=== PATIENT | female | born 1970 | race Caucasian/White ===

== ENCOUNTER 2016-10-26 18:11 | Emergency (ER) | payer SELFPAY ==
[2016-10-26] MEDS ORDERED: SULFAMETHOXAZOLE/TRIMETHOPRIM 800-160 MG TABLET PO ONE ×2 (19:50→19:54)
[2016-10-26] MEDS ORDERED: HYDROCODONE/ACETAMINOPHEN 5-325 MG 6 TAB/DSPK PO PRN (19:58)
--- NOTE | 2016-10-26 20:00 | ER Document Report ---
HPI - HPI Patient complains to provider of: Despite Onset: This morning Onset/Duration: Persistent, Worse Quality of pain: Achy Pain Level: 2 Context: States that she was bit by a spider to her right second finger. Patient states she noticed a lesion this morning. Patient reports that gradually through the day that her finger has become more tender, swollen and red. Patient denies any fever. Patient states that she did receive a dose of Rocephin and was placed on Ceftin yesterday to treat strep pharyngitis. Patient states she has had 3 doses of her antibiotics so far. Pt Reports that her sore throat symptoms seem to be improved today. Associated Symptoms: denies: Fever Exacerbated by: Movement Relieved by: Denies Similar symptoms previously: No Recently seen / treated by doctor: Yes - ROS ROS below otherwise negative: Yes Systems Reviewed and Negative: Yes All other systems reviewed and negative - CONSTITUTIONAL Constitutional: REPORTS: Fever - EENT EENT: DENIES: Sore Throat - NEURO Neurology: DENIES: Headache - CARDIOVASCULAR Cardiovascular: DENIES: Chest pain - GASTROINTESTINAL Gastrointestinal: DENIES: Nausea - REPRODUCTIVE Reproductive: DENIES: : - MUSCULOSKELETAL Musculoskeletal: REPORTS: Extremity pain, Swelling - DERM Skin Color: Erythema Notes: insect bite Past Medical History - General Information source: Patient - Social History Smoking Status: Former Smoker Chew tobacco use (# tins/day): No Frequency of alcohol use: None Drug Abuse: None Occupation: medical office Lives with: Family Family History: Reviewed & Not Pertinent Patient has suicidal ideation: No Patient has homicidal ideation: No - Past Medical History Cardiac Medical History: Reports: Hx Hypertension Neurological Medical History: Reports: Hx Migraine Renal/ Medical History: Denies: Hx Peritoneal Dialysis Past Surgical History: Reports: Hx Section - x 3, Hx Gynecologic Surgery - d+c, Hx Hysterectomy, Hx Tubal Ligation - Immunizations Hx Diphtheria, Pertussis, Tetanus Vaccination: Yes Vertical Provider Document - CONSTITUTIONAL Agree With Documented VS: Yes Exam Limitations: No Limitations General Appearance: WD/WN, No Apparent Distress - INFECTION CONTROL TRAVEL OUTSIDE OF THE [place] IN LAST 30 DAYS: No - HEENT HEENT: Atraumatic, Normal ENT Exam, Normocephalic. negative: Pharyngeal Exudate , Pharyngeal Tenderness, Pharyngeal Erythema - NECK Neck: Normal Inspection, Supple. negative: Lymphadenopathy-Left, Lymphadenopathy-Right - RESPIRATORY Respiratory: Breath Sounds Normal, No Respiratory Distress O2 Sat by Pulse Oximetry: 99 - CARDIOVASCULAR Cardiovascular: Regular Rate, Regular Rhythm, No Murmur Pulses: Normal: Radial - MUSCULOSKELETAL/EXTREMETIES Musculoskeletal/Extremeties: MAEW, Tender - right 2nd finger tenderness, Edema - 1+ - NEURO Level of Consciousness: Awake, Alert, Appropriate Motor/Sensory: No Motor Deficit, No Sensory Deficit - DERM Integumentary: Warm, Dry. negative: Abscess Notes: Patient with erythematous, violaceous skin lesion to dorsal aspect of right second finger over proximal phalanx, lesion with faint erythema extending proximally up and about 2 cm. No concern for tenosynovitis. No concern for drainable abscess at this time. Course - Re-evaluation Re-evalutation: 10/26/16 19:[address] Ordaz regarding patient presentation. Agrees with plan to add Bactrim for MRSA coverage - Vital Signs Vital signs: Temp Pulse Resp BP Pulse Ox 97.8 F 95 16 133/85 H 99 10/26/16 18:23 10/26/16 18:23 10/26/16 18:23 10/26/16 18:23 10/26/16 18:23 Discharge - Discharge Clinical Impression: Insect bite Qualifiers: Encounter type: initial encounter Qualified Code(s): W57.XXXA - Bitten or stung by nonvenomous insect and other nonvenomous arthropods, initial encounter Cellulitis, finger Qualifiers: Laterality: right Qualified Code(s): L03.011 - Cellulitis of right finger Condition: Stable Disposition: HOME, SELF-CARE Instructions: Insect Bites ([facility]), Cellulitis ([facility]), Trimethoprim-Sulfa ([facility]) Additional Instructions: Continue to take your Ceftin as previously prescribed Return as needed for any new or worsening symptoms follow up with your primary care provider for a recheck, call tomorrow for an appointment Prescriptions: Sulfamethoxazole/Trimethoprim [Bactrim Ds Tablet] 1 each PO BID #20 tablet Referrals: VINICIO CERRATO FNP-C [Primary Care Provider] - Follow up as needed VANDA SANFORD PA-C [COMMUNITY BASED STAFF] - Follow up tomorrow
[2016-10-26 20:29] VITALS: BP 128/86
== END 2016-10-26 20:27 | disposition home or self-care (01) ==
LOC: ER 18:11
DX: S60.460A Insect bite (nonvenomous) of right index finger, initial encounter (principal); L03.011 Cellulitis of right finger; W57.XXXA Bitten or stung by nonvenomous insect and other nonvenomous arthropods, initial encounter; J02.0 Streptococcal pharyngitis; Z87.891 Personal history of nicotine dependence; I10 Essential (primary) hypertension
CPT/HCPCS: 99281

== ENCOUNTER 2017-10-08 14:50 | Observation (INO) | payer BC ==
[2017-10-08] MEDS ORDERED: ASPIRIN 81 MG TABLET, CHEWABLE PO ONE (15:07)
--- NOTE | 2017-10-08 15:07 | ER Document Report ---
ED Medical Screen (RME) - General Chief Complaint: Chest Pain Stated Complaint: CHEST TIGHTNESS, HEADACHE Time Seen by Provider: 10/08/17 15:07 Mode of Arrival: Ambulatory Information source: Patient Notes: 47-year-old female with hypertension who presents to the emergency room with intermittent retrosternal squeezing since 830 this morning. No obvious exertional component. Denies any contributing or relieving factors. TRAVEL OUTSIDE OF THE [place] IN LAST 30 DAYS: No - Related Data Allergies/Adverse Reactions: No Known Allergies Allergy (Verified 10/08/17 14:52) Past Medical History - Social History Chew tobacco use (# tins/day): No Frequency of alcohol use: None Drug Abuse: Marijuana - Past Medical History Cardiac Medical History: Reports: Hx Hypertension Neurological Medical History: Reports: Hx Migraine Renal/ Medical History: Denies: Hx Peritoneal Dialysis Past Surgical History: Reports: Hx Section - x 3, Hx Gynecologic Surgery - d+c, Hx Hysterectomy, Hx Tubal Ligation - Immunizations Hx Diphtheria, Pertussis, Tetanus Vaccination: Yes Physical Exam - Vital signs Vitals: Temp Pulse Resp BP Pulse Ox 97.4 F 82 20 147/82 H 99 10/08/17 14:59 10/08/17 14:59 10/08/17 14:59 10/08/17 14:59 10/08/17 14:59 Course - Vital Signs Vital signs: Temp Pulse Resp BP Pulse Ox 97.4 F 82 20 147/82 H 99 10/08/17 14:59 10/08/17 14:59 10/08/17 14:59 10/08/17 14:59 10/08/17 14:59
--- NOTE | 2017-10-08 15:42 | RADIOLOGY REPORT (SQ) ---
EXAM DESCRIPTION: CHEST SINGLE VIEW COMPLETED DATE/TIME: 10/08/2017 3:30 pm REASON FOR STUDY: chest pain COMPARISON: 03/30/2015. EXAM PARAMETERS: NUMBER OF VIEWS: One view. TECHNIQUE: Single frontal radiographic view of the chest acquired. RADIATION DOSE: NA LIMITATIONS: None. FINDINGS: LUNGS AND PLEURA: No opacities, masses or pneumothorax. No pleural effusion. MEDIASTINUM AND HILAR STRUCTURES: No masses. Contour normal. HEART AND VASCULAR STRUCTURES: Heart normal in size. Normal vasculature. BONES: No acute findings. HARDWARE: None in the chest. OTHER: No other significant finding. IMPRESSION: NO ACUTE RADIOGRAPHIC FINDING IN THE CHEST. TECHNICAL DOCUMENTATION: JOB ID: [id number] [employer]- All Rights Reserved Reading location - IP/workstation name: [email or web address]
[2017-10-08 15:51] LABS: ABSOLUTE BASOPHILS # (AUTO) 0.1 10^3/uL (0.0-0.2); ABSOLUTE EOSINOPHILS # (AUTO) 0.7 10^3/uL (0.0-0.6); ABSOLUTE MONOCYTES (AUTO) 0.5 10^3/uL (0.1-1.4); ABSOLUTE NEUT (AUTO) 4.3 10^3/uL (1.7-8.2); BASOPHILS % (AUTO) 0.7 % (0-2); EOSINOPHILS % (AUTO) 8.8 % (0-6); HEMATOCRIT 42.8 % (36.0-47.0); HEMOGLOBIN 14.6 g/dL (12.0-15.5); MEAN CORPUSCULAR HEMOGLOBIN 29.5 pg (27.0-33.4); MEAN CORPUSCULAR HGB CONC 34.2 g/dL (32.0-36.0); MEAN CORPUSCULAR VOLUME 86 fl (80-97); MONOCYTES % (AUTO) 7.2 % (3-13); PLATELET COUNT 304 10^3/uL (150-450); RED BLOOD COUNT 4.96 10^6/uL (3.72-5.28); RED CELL DISTRIBUTION WIDTH 13.8 % (11.5-14.0); SEGMENTED NEUTROPHILS % (AUTO) 57.3 % (42-78); TOTAL CELLS COUNTED % (AUTO) 100 %; WHITE BLOOD COUNT 7.6 10^3/uL (4.0-10.5)
[2017-10-08 16:08] LABS: ALANINE AMINOTRANSFERASE 23 U/L (9-52); ALBUMIN 4.3 g/dL (3.5-5.0); ALKALINE PHOSPHATASE 77 U/L (38-126); ANION GAP 12 (5-19); ASPARTATE AMINO TRANSFERASE 23 U/L (14-36); BILIRUBIN,DIRECT 0.3 mg/dL (0.0-0.4); BILIRUBIN,TOTAL 0.3 mg/dL (0.2-1.3); BLOOD UREA NITROGEN 23 mg/dL (7-20); CALCIUM 10.5 mg/dL (8.4-10.2); CARBON DIOXIDE 33 mmol/L (22-30); CHLORIDE 99 mmol/L (98-107); CREATINE KINASE 48 U/L (30-135); GLUCOSE 82 mg/dL (75-110); POTASSIUM 4.5 mmol/L (3.6-5.0); SODIUM 143.5 mmol/L (137-145); TOTAL PROTEIN 8.1 g/dL (6.3-8.2)
--- NOTE | 2017-10-08 16:08 | ER Document Report ---
ED General - General Chief Complaint: Chest Pain Stated Complaint: CHEST TIGHTNESS, HEADACHE Time Seen by Provider: 10/08/17 15:07 Mode of Arrival: Ambulatory Information source: Patient Notes: 47-year-old female history of hypertension family history of coronary artery disease presents with complaints of chest tightness sensation. Patient notes that he feels that there is a squeezing sensation in her chest lasting 15 minutes at a time. Patient denies any previous similar episodes has never had a stress test TRAVEL OUTSIDE OF THE [place] IN LAST 30 DAYS: No - HPI Onset: This morning Onset/Duration: Sudden Quality of pain: Pressure Severity: Mild Pain Level: 1 Associated symptoms: Chest pain Exacerbated by: Denies Relieved by: Denies Similar symptoms previously: No Recently seen / treated by doctor: No - Related Data Allergies/Adverse Reactions: No Known Allergies Allergy (Verified 10/08/17 15:07) Past Medical History - General Information source: Patient - Social History Smoking Status: Never Smoker Cigarette use (# per day): No Chew tobacco use (# tins/day): No Smoking Education Provided: No Frequency of alcohol use: None Drug Abuse: Marijuana Family History: Reviewed & Not Pertinent Patient has suicidal ideation: No Patient has homicidal ideation: No - Past Medical History Cardiac Medical History: Reports: Hx Hypertension Neurological Medical History: Reports: Hx Migraine Renal/ Medical History: Denies: Hx Peritoneal Dialysis Past Surgical History: Reports: Hx Section - x 3, Hx Gynecologic Surgery - d+c, Hx Hysterectomy, Hx Tubal Ligation - Immunizations Hx Diphtheria, Pertussis, Tetanus Vaccination: Yes Review of Systems - Review of Systems Notes: REVIEW OF SYSTEMS: CONSTITUTIONAL : Denies fever, chills, or sweats. Denies recent illness. EENT: Denies eye, ear, throat, or mouth pain or symptoms. Denies nasal or sinus congestion or discharge. Denies throat, tongue, or mouth swelling or difficulty swallowing. CARDIOVASCULAR: Denies chest pain. Denies palpitations or racing or irregular heart beat. Denies ankle edema. RESPIRATORY: Admits to chest pain. GASTROINTESTINAL: Denies abdominal pain or distention. Denies nausea, vomiting , or diarrhea. Denies blood in vomitus, stools, or per rectum. Denies black, tarry stools. Denies constipation. GENITOURINARY: Denies difficulty urinating, painful urination, burning, frequency, blood in urine, or discharge. FEMALE GENITOURINARY: Denies vaginal bleeding, heavy or abnormal periods, irregular periods. Denies vaginal discharge or odor. MUSCULOSKELETAL: Denies back or neck pain or stiffness. Denies joint pain or swelling. SKIN: Denies rash, lesions or sores. HEMATOLOGIC : Denies easy bruising or bleeding. LYMPHATIC: Denies swollen, enlarged glands. NEUROLOGICAL: Denies confusion or altered mental status. Denies passing out or loss of consciousness. Denies dizziness or lightheadedness. Denies headache. Denies weakness or paralysis or loss of use of either side. Denies problems with gait or speech. Denies sensory loss, numbness, or tingling. Denies seizures. PSYCHIATRIC: Denies anxiety or stress. Denies depression, suicidal ideation, or homicidal ideation. ALL OTHER SYSTEMS REVIEWED AND NEGATIVE. PHYSICAL EXAMINATION: GENERAL: Well-appearing, well-nourished and in no acute distress. HEAD: Atraumatic, normocephalic. EYES: Pupils equal round and reactive to light, extraocular movements intact, conjunctiva are normal. ENT: Nares patent, oropharynx clear without exudates. Moist mucous membranes. NECK: Normal range of motion, supple without lymphadenopathy LUNGS: Breath sounds clear to auscultation bilaterally and equal. No wheezes rales or rhonchi. HEART: Regular rate and rhythm without murmurs ABDOMEN: Soft, nontender, nondistended abdomen. No guarding, no rebound. No masses appreciated. Female : deferred Musculoskeletal: Normal range of motion, no pitting or edema. No cyanosis. NEUROLOGICAL: Cranial nerves grossly intact. Normal speech, normal gait. Normal sensory, motor exams PSYCH: Normal mood, normal affect. SKIN: Warm, Dry, normal turgor, no rashes or lesions noted. Dictation was performed using [employer] voice recognition software Physical Exam - Vital signs Vitals: Temp Pulse Resp BP Pulse Ox 97.4 F 82 20 147/82 H 99 10/08/17 14:59 10/08/17 14:59 10/08/17 14:59 10/08/17 14:59 10/08/17 14:59 Course - Re-evaluation Re-evalutation: 10/08/17 18:15 Patient's presentation is concerning for acute coronary syndrome, I will observe the patient in the hospital, EKG noted no significant abnormality, patient's pain-free at this time for set of cardiac enzymes was negative - Vital Signs Vital signs: Temp Pulse Resp BP Pulse Ox 98.0 F 82 12 128/93 H 97 10/08/17 18:00 10/08/17 14:59 10/08/17 18:01 10/08/17 18:00 10/08/17 18:01 - Laboratory Result Diagrams: 10/08/17 15:20 10/08/17 15:20 Laboratory results interpreted by me: 10/08/17 10/08/17 15:20 15:20 Eosinophils % 8.8 H Absolute Eosinophils 0.7 H Carbon Dioxide 33 H BUN 23 H Calcium 10.5 H - Diagnostic Test Radiology reviewed: Image reviewed - 2 view chest x-ray notes no acute abnormality, Reports reviewed - EKG Interpretation by Me EKG shows normal: Sinus rhythm, Gordon, Intervals, QRS Complexes Discharge - Discharge Clinical Impression: Chest pain Qualifiers: Chest pain type: unspecified Qualified Code(s): R07.9 - Chest pain, unspecified HTN (hypertension) Qualifiers: Hypertension type: essential hypertension Qualified Code(s): I10 - Essential ( primary) hypertension Condition: Stable Disposition: ADMITTED OBSERVATION Admitting Provider: Hospitalist Unit Admitted: Telemetry
--- NOTE | 2017-10-08 16:19 | EKG REPORT ---
SEVERITY:- BORDERLINE ECG - SINUS RHYTHM PROBABLE LEFT ATRIAL ABNORMALITY : Confirmed by: Myke Alvarez 08-Oct-2017 16:18:17
[2017-10-08 16:20] LABS: CREATINE KINASE MB 0.59 ng/mL (<4.55); TROPONIN I < 0.012 ng/mL
[2017-10-08] MEDS ORDERED: ONDANSETRON HCL INJ/PF 4 MG/2 ML SDV IV PRN (17:40)
[2017-10-08] MEDS ORDERED: ZOLPIDEM TARTRATE 5 MG TABLET PO PRN (17:40)
[2017-10-08] MEDS ORDERED: MAGNESIUM HYDROXIDE SUSP 30 ML UDCUP PO PRN (17:40)
[2017-10-08] MEDS ORDERED: ACETAMINOPHEN 325 MG TABLET PO PRN (17:40)
[2017-10-08] MEDS ORDERED: OXYCODONE-ACETAMINOPHEN 5-325 MG TABLET PO PRN (17:40)
[2017-10-08] MEDS ORDERED: IPRATROPIUM/ALBUTEROL 0.5-2.5 MG/3 ML AMPUL NEB PRN (17:40)
--- NOTE | 2017-10-08 17:52 | PDOC H&P ---
History of Present Illness Admission Date/PCP: 10/08/17 17:06 MONET MCKEON MD Patient complains of: Chest pain, nonradiating for few hours History of Present Illness: MAHESH BRASHER is a 47 year old female presents to the emergency room with complaints of short twinges of chest pain, intermittent, and non-radiating restarted today. Chest pain is resolved. There is no associated nausea vomiting diaphoresis or any other pertinent symptoms there is no history of probable chest pain. Past Medical History Cardiac Medical History: Reports: Hypertension Neurological Medical History: Reports: Migraine Hematology: Reports: Anemia Past Surgical History Past Surgical History: Reports: Section - x 3, Hysterectomy, Tubal Ligation Social History Information Source: Patient Smoking Status: Never Smoker Frequency of Alcohol Use: None Hx Recreational Drug Use: No Hx Prescription Drug Abuse: No - Advance Directive Resuscitation Status: Full Code Family History Family History: Reviewed & Not Pertinent Parental Family History Reviewed: Yes - [place] in father Children Family History Reviewed: Yes Sibling(s) Family History Reviewed.: Yes Medication/Allergy Home Medications: Bupropion HCl [Wellbutrin 100 mg Tablet] 150 mg PO BID 10/08/17 Lisinopril/Hydrochlorothiazide [Lisinopril-Hctz 20-12.5 mg Tab] 1 each PO DAILY 10/08/17 Allergies/Adverse Reactions: No Known Allergies Allergy (Verified 10/08/17 15:07) Review of Systems Constitutional: ABSENT: chills, fever(s), headache(s), weight gain, weight loss Eyes: ABSENT: visual disturbances Cardiovascular: PRESENT: chest pain. ABSENT: dyspnea on exertion, edema, orthropnea, palpitations Respiratory: ABSENT: cough, hemoptysis Gastrointestinal: ABSENT: abdominal pain, constipation, diarrhea, hematemesis, hematochezia, nausea, vomiting Genitourinary: ABSENT: dysuria, hematuria Musculoskeletal: ABSENT: joint swelling Integumentary: ABSENT: rash, wounds Neurological: ABSENT: abnormal gait, abnormal speech, confusion, dizziness, focal weakness, syncope Psychiatric: ABSENT: anxiety, depression, homidical ideation, suicidal ideation Endocrine: ABSENT: cold intolerance, heat intolerance, polydipsia, polyuria Hematologic/Lymphatic: ABSENT: easy bleeding, easy bruising Physical Exam Vital Signs: Temp Pulse Resp BP Pulse Ox 97.4 F 82 13 126/90 H 98 10/08/17 14:59 10/08/17 14:59 10/08/17 17:05 10/08/17 17:05 10/08/17 17:05 General appearance: PRESENT: no acute distress, well-developed, well-nourished Head exam: PRESENT: atraumatic, normocephalic Eye exam: PRESENT: conjunctiva pink, EOMI, PERRLA. ABSENT: scleral icterus Ear exam: PRESENT: normal external ear exam Mouth exam: PRESENT: moist, tongue midline Neck exam: ABSENT: carotid bruit, JVD, lymphadenopathy, thyromegaly Respiratory exam: PRESENT: clear to auscultation iris. ABSENT: rales, rhonchi, wheezes Cardiovascular exam: PRESENT: RRR. ABSENT: diastolic murmur, rubs, systolic murmur Pulses: PRESENT: normal dorsalis pedis pul Vascular exam: PRESENT: normal capillary refill GI/Abdominal exam: PRESENT: normal bowel sounds, soft. ABSENT: distended, guarding, mass, organolmegaly, rebound, tenderness Rectal exam: PRESENT: deferred Extremities exam: PRESENT: full ROM. ABSENT: calf tenderness, clubbing, pedal edema Neurological exam: PRESENT: alert, awake, oriented to person, oriented to place , oriented to time, oriented to situation, CN II-XII grossly intact. ABSENT: motor sensory deficit Psychiatric exam: PRESENT: appropriate affect, normal mood. ABSENT: homicidal ideation, suicidal ideation Skin exam: PRESENT: dry, intact, warm. ABSENT: cyanosis, rash Results Laboratory Results: Laboratory 10/08/17 10/08/17 10/08/17 15:20 15:20 15:20 WBC 7.6 RBC 4.96 Hgb 14.6 Hct 42.8 MCV 86 MCH 29.5 MCHC 34.2 RDW 13.8 Plt Count 304 Seg Neutrophils % 57.3 Lymphocytes % 26.0 Monocytes % 7.2 Eosinophils % 8.8 H Basophils % 0.7 Absolute Neutrophils 4.3 Absolute Lymphocytes 2.0 Absolute Monocytes 0.5 Absolute Eosinophils 0.7 H Absolute Basophils 0.1 Sodium 143.5 Potassium 4.5 Chloride 99 Carbon Dioxide 33 H Anion Gap 12 BUN 23 H Creatinine 0.90 Est GFR ( Amer) > 60 Est GFR (Non-Af Amer) > 60 Glucose 82 Calcium 10.5 H Total Bilirubin 0.3 Direct Bilirubin 0.3 Neonat Total Bilirubin Not Reportable Neonat Direct Bilirubin Not Reportable Neonat Indirect Bili Not Reportable AST 23 ALT 23 Alkaline Phosphatase 77 Creatine Kinase 48 CK-MB (CK-2) 0.59 Troponin I < 0.012 Total Protein 8.1 Albumin 4.3 Impressions: Chest X-Ray 10/08/17 15:07 IMPRESSION: NO ACUTE RADIOGRAPHIC FINDING IN THE CHEST. Assessment & Plan - Diagnosis (1) Chest pain Qualifiers: Chest pain type: unspecified Qualified Code(s): R07.9 - Chest pain, unspecified Is this a current diagnosis for this admission?: Yes Plan: We will obtain cardiac enzymes and schedule for a stress test in a.m. If this is negative she likely will be discharged home (2) HTN (hypertension) Is this a current diagnosis for this admission?: Yes Plan: We will continue her home antihypertensive - Time Time Spent: 30 to 50 Minutes Medications reviewed and adjusted accordingly: Yes Anticipated discharge: Home Within: within 24 hours
[2017-10-09 07:03] LABS: TRIGLYCERIDES 337 mg/dL (<150)
[2017-10-09 07:14] LABS: DIRECT LDL 68 mg/dL (<100)
[2017-10-09 07:15] LABS: VLDL CHOLESTEROL 67.4 mg/dL (10-31)
[2017-10-09] MEDS ORDERED: ENOXAPARIN SODIUM INJ 40 MG/0.4 ML DISP.SYRIN SUBCUT SCH (10:00)
[2017-10-09] MEDS ORDERED: REGADENOSON INJ 0.4 MG/5 ML DISP.SYRIN IV ONE (11:20)
--- NOTE | 2017-10-09 12:00 | DRAGON STRESS TEST REPORT ---
Intravenous Lexiscan Cardiolite stress test using single photon emmis 5/ion computerized tomography. Date of procedure: 10/09/2017. Ordering Provider: Patient' s status:In Patient. Indication: Chest pain. Coronary risk facto Age, hypertension, and family history of coronary artery disease. Resting EKG: Sinus Rhythm. Within Normal Limits. Stress EKG:[No changes of ischemia. The patient no chest pain or discomfort, and there were no arrhythmias seen. Reason for termination: Protocol. Conclusions: Normal EKG and hemodynamic response to IV Lexiscan. Nuclear data: At rest the patient was given 14.69 millicuries of technetium 99m sestamibi injected intravenously. As per protocol rest non gated SPECT images were obtained. Subsequently the patient was given intravenous Lexiscan at a dose of 0.4 mg in 5 mL intravenously, followed by flush with normal saline. Subsequently the stress dose of 44.4 millicuries of technetium 99m sestamibi was injected intravenously. As per protocol stress gated images were obtained. Nuclear interpretation: Review of images showed that all segments of the myocardium had normal perfusion at rest, and normal perfusion post stress with IV Lexiscan. All segments of the myocardium had normal motion, contraction, and thickening by gated study. T. I D. ratio was normal at 0.97. Computer read rest, and stress left ventricular ejection fraction were 60 %, and 59 %, respectively. Conclusion: 1. There is no scintigraphic evidence of Lexiscan induced myocardial ischemia. 2. There is no scintigraphic evidence of myocardial infarction/scar. Recommendations: Aggressive risk factor modification, and treating the underlying co- morbidities. This report has been discussed with the hospitalist taking care of the patient during this admission. LEIGHTON
--- NOTE | 2017-10-09 14:04 | PDOC DISCHARGE SUMMARY ---
General - Admit/Disc Date/PCP Admission Date/Primary Care Provider: 10/08/17 17:06 Discharge Date: 10/09/17 - Discharge Diagnosis (1) Chest pain Is this a current diagnosis for this admission?: Yes (2) HTN (hypertension) Is this a current diagnosis for this admission?: Yes (3) Hypertriglyceridemia without hypercholesterolemia Is this a current diagnosis for this admission?: Yes - Additional Information Resuscitation Status: Full Code Discharge Diet: Cardiac, Other (Comments) - low cholesterol Discharge Activity: Activity As Tolerated Home Medications: Bupropion HCl [Wellbutrin 100 mg Tablet] 150 mg PO BID 10/08/17 Lisinopril/Hydrochlorothiazide [Lisinopril-Hctz 20-12.5 mg Tab] 1 each PO DAILY 10/08/17 History of Present Illness History of Present Illness: MAHESH BRASHER is a 47 year old female presents to the emergency room with complaints of short twinges of chest pain, intermittent, and non-radiating restarted today. Chest pain is resolved. There is no associated nausea vomiting diaphoresis or any other pertinent symptoms there is no history of probable chest pain. Hospital Course Hospital Course: Patient presents to emergency room with complaints of chest pain, nonradiating with no pertinent associated symptoms. She was admitted to the telemetry floor and monitored with serial cardiac enzymes done which were negative. She subsequently had a stress test done today which was also negative. Chest pain is resolved and with no further interventions been planned patient is been discharged home. Her triglyceride level was found to be elevated at 337 with low HDL level and it appears patient has a known history of this. I did not start on any medications would have access to follow-up with her primary care physician for further review and to be started on appropriate medications. Physical Exam Vital Signs: Temp Pulse Resp BP Pulse Ox 97.6 F 83 16 119/83 97 10/09/17 11:21 10/09/17 13:52 10/09/17 13:52 10/09/17 11:21 10/09/17 13:52 Intake & Output 10/08/17 10/09/17 10/10/17 06:59 06:59 06:59 Weight 104.5 kg General appearance: PRESENT: no acute distress, well-developed, well-nourished Head exam: PRESENT: atraumatic, normocephalic Eye exam: PRESENT: conjunctiva pink, EOMI, PERRLA. ABSENT: scleral icterus Ear exam: PRESENT: normal external ear exam Mouth exam: PRESENT: moist, tongue midline Neck exam: ABSENT: carotid bruit, JVD, lymphadenopathy, thyromegaly Respiratory exam: PRESENT: clear to auscultation iris. ABSENT: rales, rhonchi, wheezes Cardiovascular exam: PRESENT: RRR. ABSENT: diastolic murmur, rubs, systolic murmur Pulses: PRESENT: normal dorsalis pedis pul Vascular exam: PRESENT: normal capillary refill GI/Abdominal exam: PRESENT: normal bowel sounds, soft. ABSENT: distended, guarding, mass, organolmegaly, rebound, tenderness Rectal exam: PRESENT: deferred Extremities exam: PRESENT: full ROM. ABSENT: calf tenderness, clubbing, pedal edema Neurological exam: PRESENT: alert, awake, oriented to person, oriented to place , oriented to time, oriented to situation, CN II-XII grossly intact. ABSENT: motor sensory deficit Psychiatric exam: PRESENT: appropriate affect, normal mood. ABSENT: homicidal ideation, suicidal ideation Skin exam: PRESENT: dry, intact, warm. ABSENT: cyanosis, rash Results Laboratory Results: 10/09/17 05:24 Triglycerides 337 H Cholesterol 158.20 LDL Cholesterol Direct 68 VLDL Cholesterol 67.4 H HDL Cholesterol 37 L 10/08/17 10/09/17 18:25 05:24 Troponin I < 0.012 < 0.012 Impressions: Chest X-Ray 10/08/17 15:07 IMPRESSION: NO ACUTE RADIOGRAPHIC FINDING IN THE CHEST. Qualifiers - * PATIENT BEING DISCHARGED WITH ANY OF THE FOLLOWING DIAGNOSIS: No
[2017-10-09 14:14] VITALS: BP 147/82
== END 2017-10-09 14:35 | disposition home or self-care (01) ==
LOC: ER 14:50 → EH 17:06 → 4N 18:40
PROVIDERS: ADMIT Internal Medicine; ATTEND Internal Medicine
DX: R07.9 Chest pain, unspecified (principal); I10 Essential (primary) hypertension; E78.1 Pure hyperglyceridemia; F12.10 Cannabis abuse, uncomplicated; Z79.899 Other long term (current) drug therapy; Z82.49 Family history of ischemic heart disease and other diseases of the circulatory system
CPT/HCPCS: 93005; 99285; 36415 ×2; 82553; 82550; 85025; 80053; 84484 ×2; 80061; 93017; 71045; 78452; 93010; G0378 ×3; A9500; J2785; J1650; J3490 ×2; J2405; Q9969

== ENCOUNTER 2018-03-25 10:05 | Emergency (ER) | payer BC ==
[2018-03-25 10:14] VITALS: BP 153/94
== END 2018-03-25 11:30 | disposition left against medical advice (07) ==
LOC: ER 10:05
DX: Z53.21 Procedure and treatment not carried out due to patient leaving prior to being seen by health care provider (principal)

== ENCOUNTER 2018-09-01 17:05 | Emergency (ER) | payer BC ==
[2018-09-01 17:15] VITALS: BP 145/100
[2018-09-01] MEDS ORDERED: ACETAMINOPHEN 325 MG TABLET PO ONE (17:23)
[2018-09-01] MEDS ORDERED: IBUPROFEN 600 MG TABLET PO ONE (17:23)
--- NOTE | 2018-09-01 17:27 | ER Document Report ---
HPI - HPI Time Seen by Provider: 09/01/18 17:23 Pain Level: 5 Context: Patient is a 48-year-old female who presents to the emergency department with a chief complaint of left hand pain. She states that she was walking up hill to fill her bird feeder and she slipped and fell with her hand outstretched backwards. She feels like it is a throbbing pain. Past medical history includes hypertension, in which she is on medications for. She states that she did not take her blood pressure medication today and her blood pressure is 145/100 here in the emergency department. She states that this is her normal. - CONSTITUTIONAL Constitutional: DENIES: Fever, Chills - EENT EENT: DENIES: Sore Throat - NEURO Neurology: DENIES: Headache - RESPIRATORY Respiratory: DENIES: Trouble Breathing, Coughing - REPRODUCTIVE Reproductive: DENIES: : - MUSCULOSKELETAL Musculoskeletal: REPORTS: Extremity pain - Left hand, Swelling - Mild to left hand at palm - DERM Skin Color: Erythema - Left hand Past Medical History - Social History Smoking Status: Unknown if Ever Smoked Family History: Reviewed & Not Pertinent - Past Medical History Cardiac Medical History: Reports: Hx Hypertension Neurological Medical History: Reports: Hx Migraine Renal/ Medical History: Denies: Hx Peritoneal Dialysis Past Surgical History: Reports: Hx Section - x 3, Hx Gynecologic Surgery - d+c, Hx Hysterectomy, Hx Tubal Ligation - Immunizations Hx Diphtheria, Pertussis, Tetanus Vaccination: Yes Vertical Provider Document - CONSTITUTIONAL Agree With Documented VS: Yes Exam Limitations: No Limitations General Appearance: No Apparent Distress - INFECTION CONTROL TRAVEL OUTSIDE OF THE [place] IN LAST 30 DAYS: No - HEENT HEENT: Atraumatic, Normocephalic - RESPIRATORY Respiratory: Breath Sounds Normal, No Respiratory Distress - CARDIOVASCULAR Cardiovascular: Regular Rate, Regular Rhythm Pulses: Normal: Radial - MUSCULOSKELETAL/EXTREMETIES Musculoskeletal/Extremeties: Tender - Left lateral hand at Palm, Edema - Mild left lateral hand at palm - NEURO Level of Consciousness: Awake, Alert, Appropriate Motor/Sensory: No Motor Deficit, No Sensory Deficit - DERM Integumentary: Warm, Dry Course - Re-evaluation Re-evalutation: 09/01/18 17:51 Patient's x-ray is negative for any fracture at this time. I do not suspect a tendon injury, as the patient is able to flex and extend her hand only a little difficulty. She will follow-up with her primary care provider in regards to this issue. If her symptoms are not better, she can also follow-up with orthopedics. She will continue ibuprofen and Tylenol for pain relief. Verbal discharge instructions were given to the patient. They verbalized understanding. They are stable for discharge. - Vital Signs Vital signs: Temp Pulse Resp BP Pulse Ox 97.4 F 99 18 145/100 H 97 09/01/18 17:14 09/01/18 17:14 09/01/18 17:14 09/01/18 17:14 09/01/18 17:14 Discharge - Discharge Clinical Impression: Left wrist sprain Qualifiers: Encounter type: initial encounter Qualified Code(s): S63.502A - Unspecified sprain of left wrist, initial encounter Condition: Stable Disposition: HOME, SELF-CARE Additional Instructions: You were seen today in the emergency department for left hand pain after falling. Your x-ray is normal. You have been provided a splint. You may use the splint as needed for comfort. Please rest the area, apply ice (20 minutes on, 20 minutes off), and elevate the area. Please take ibuprofen 600 mg and acetaminophen 1000 mg every 6 hours for your pain. Please follow-up with your primary care provider in regards to this visit.
--- NOTE | 2018-09-01 17:42 | RADIOLOGY REPORT (SQ) ---
EXAM DESCRIPTION: HAND LEFT 3 VIEWS COMPLETED DATE/TIME: 09/01/2018 5:34 pm REASON FOR STUDY: fall; left hand pain COMPARISON: None. EXAM PARAMETERS: NUMBER OF VIEWS: Three views. TECHNIQUE: AP, lateral and oblique radiographic images acquired of the left hand. LIMITATIONS: None. FINDINGS: MINERALIZATION: Normal. BONES: No acute fracture or dislocation. No worrisome bone lesions. JOINTS: No effusions. SOFT TISSUES: No soft tissue swelling. No foreign body. OTHER: No other significant finding. IMPRESSION: NEGATIVE STUDY OF THE LEFT HAND. NO RADIOGRAPHIC EVIDENCE OF ACUTE INJURY. TECHNICAL DOCUMENTATION: JOB ID: [id number] [employer]- All Rights Reserved Reading location - IP/workstation name: [email or web address]
== END 2018-09-01 18:15 | disposition home or self-care (01) ==
LOC: ER 17:05
DX: S63.502A Unspecified sprain of left wrist, initial encounter (principal); M79.642 Pain in left hand; M79.89 Other specified soft tissue disorders; W10.2XXA Fall (on)(from) incline, initial encounter; Y93.89 Activity, other specified; I10 Essential (primary) hypertension; Z79.899 Other long term (current) drug therapy
CPT/HCPCS: 99283; 73130; L3908

== ENCOUNTER 2019-01-17 11:10 | Emergency (ER) | payer BC ==
[2019-01-17 11:17] VITALS: BP 137/77
--- NOTE | 2019-01-17 12:32 | ER Document Report ---
ED Medical Screen (RME) - General Chief Complaint: Burn Stated Complaint: SKIN RASH Time Seen by Provider: 01/17/19 12:26 Notes: Patient presents with self-inflicted jay to left arm that she is worried are infected at this time. Patient does report off and on thoughts of suicide. Patient reports medication adjustments to her mental health meds about 2 weeks ago. Patient reports that she has been attempting to take antibiotics to treat possible infection to her arm but vomits with them and is concerned that she may be vomiting up her psychiatric medications as well. I have greeted and performed a rapid initial assessment of this patient. A comprehensive ED assessment and evaluation of the patient, analysis of test results and completion of the medical decision making process will be conducted by additional ED providers. TRAVEL OUTSIDE OF THE [place] IN LAST 30 DAYS: No - Related Data Allergies/Adverse Reactions: cephalexin [From Keflex] Allergy (Verified 01/17/19 11:13) Sulfa (Sulfonamide Antibiotics) Allergy (Verified 01/17/19 11:13) Past Medical History - Past Medical History Cardiac Medical History: Reports: Hx Hypertension Neurological Medical History: Reports: Hx Migraine Renal/ Medical History: Denies: Hx Peritoneal Dialysis Past Surgical History: Reports: Hx Section - x 3, Hx Gynecologic Surgery - d+c, Hx Hysterectomy, Hx Tubal Ligation - Immunizations Hx Diphtheria, Pertussis, Tetanus Vaccination: Yes Physical Exam - Vital signs Vitals: Temp Pulse Resp BP Pulse Ox 97.8 F 94 18 137/77 H 98 01/17/19 11:16 01/17/19 11:16 01/17/19 11:16 01/17/19 11:16 01/17/19 11:16 - Skin Skin Temperature: Warm Skin Moisture: Dry Skin Color: Other - Mild erythema surrounding jay to left forearm Course - Vital Signs Vital signs: Temp Pulse Resp BP Pulse Ox 97.8 F 94 18 137/77 H 98 01/17/19 11:16 01/17/19 11:16 01/17/19 11:16 01/17/19 11:16 01/17/19 11:16
[2019-01-17] MEDS ORDERED: DIPH/PERTUSS(ACELL)/TETANUS VAC/PF 0.5 ML SYR (>=10YO) IM ONE (12:34)
[2019-01-17 13:22] LABS: ABSOLUTE BASOPHILS # (AUTO) 0.1 10^3/uL (0.0-0.2); ABSOLUTE EOSINOPHILS # (AUTO) 0.6 10^3/uL (0.0-0.6); ABSOLUTE MONOCYTES (AUTO) 0.4 10^3/uL (0.1-1.4); ABSOLUTE NEUT (AUTO) 5.2 10^3/uL (1.7-8.2); BASOPHILS % (AUTO) 0.9 % (0-2); EOSINOPHILS % (AUTO) 6.8 % (0-6); HEMATOCRIT 40.3 % (36.0-47.0); HEMOGLOBIN 13.7 g/dL (12.0-15.5); LYMPHOCYTES % (AUTO) 24.1 % (13-45); MEAN CORPUSCULAR HEMOGLOBIN 30.3 pg (27.0-33.4); MEAN CORPUSCULAR HGB CONC 33.9 g/dL (32.0-36.0); MEAN CORPUSCULAR VOLUME 89 fl (80-97); MONOCYTES % (AUTO) 4.8 % (3-13); PLATELET COUNT 349 10^3/uL (150-450); RED CELL DISTRIBUTION WIDTH 13.1 % (11.5-14.0); SEGMENTED NEUTROPHILS % (AUTO) 63.4 % (42-78); TOTAL CELLS COUNTED % (AUTO) 100 %; WHITE BLOOD COUNT 8.2 10^3/uL (4.0-10.5)
[2019-01-17 13:32] LABS: AMORPHOUS SEDIMENT,URINE 1+ /HPF; APPEARANCE,URINE CLOUDY; BILIRUBIN,URINE NEGATIVE (NEGATIVE); COLOR,URINE YELLOW; GLUCOSE, URINE NEGATIVE (NEGATIVE); KETONES,URINE NEGATIVE (NEGATIVE); LEUKOCYTE ESTERASE,URINE NEGATIVE (NEGATIVE); NITRITE,URINE NEGATIVE (NEGATIVE); PROTEIN,URINE NEGATIVE (NEGATIVE); URINE SPECIFIC GRAVITY 1.018; UROBILINOGEN,URINE NEGATIVE mg/dL (<2.0)
[2019-01-17 13:48] LABS: ALBUMIN 4.1 g/dL (3.5-5.0); ALKALINE PHOSPHATASE 66 U/L (38-126); ANION GAP 10 (5-19); ASPARTATE AMINO TRANSFERASE 19 U/L (14-36); BILIRUBIN,DIRECT 0.2 mg/dL (0.0-0.4); BILIRUBIN,TOTAL 0.2 mg/dL (0.2-1.3); BLOOD UREA NITROGEN 19 mg/dL (7-20); CALCIUM 9.8 mg/dL (8.4-10.2); CARBON DIOXIDE 28 mmol/L (22-30); CHLORIDE 103 mmol/L (98-107); GLUCOSE 99 mg/dL (75-110); POTASSIUM 4.1 mmol/L (3.6-5.0); TOTAL PROTEIN 7.3 g/dL (6.3-8.2)
[2019-01-17 13:51] LABS: URINE AMPHETAMINES SCREEN NEGATIVE; URINE BARBITURATES SCREEN NEGATIVE; URINE BENZODIAZEPINES SCREEN NEGATIVE; URINE COCAINE SCREEN NEGATIVE; URINE MARIJUANA (THC) SCREEN UNCONFIRMED POSITIVE; URINE METHADONE SCREEN NEGATIVE; URINE PHENCYCLIDINE SCREEN NEGATIVE
[2019-01-17 13:52] LABS: ACETAMINOPHEN < 10 ug/mL (10-30); ALCOHOL < 10 mg/dL (NONE DETECTED); SALICYLATE < 1.0 mg/dL (2.0-20.0)
--- NOTE | 2019-01-17 15:20 | PSYCHOLOGICAL NOTE ---
Psych Note - Psych Note Date seen by psych provider: 01/17/19 Psych Note: Clinician spoke with the network systems consultant. They report that since the patient is already left the premises prior to evaluation the IVC petition must be brought in to the network systems consultant's office. They report that the doctor can sign with it being notarized and then have the designated person just bring it into the network systems consultant's office. Geoffrey Paul was present in the emergency department delivering a different IVC patient. He reports he must go back to the network systems consultant office and offered to transport IVC petition for this patient to the network systems consultant's office himself.
--- NOTE | 2019-01-17 19:08 | EKG REPORT ---
SEVERITY:- NORMAL ECG - SINUS RHYTHM : Confirmed by: Clarke Dawkins MD 17-Jan-2019 19:08:30
== END 2019-01-17 15:00 | disposition left against medical advice (07) ==
LOC: ER 11:10
DX: R21 Rash and other nonspecific skin eruption (principal); R45.851 Suicidal ideations; I10 Essential (primary) hypertension; Z90.710 Acquired absence of both cervix and uterus; Z88.2 Allergy status to sulfonamides; Z88.3 Allergy status to other anti-infective agents; Z23 Encounter for immunization
CPT/HCPCS: 36415; 80053; 80307; 81001; 84703; 85025; 90471; 90715; 93005; 93010; 99281

== ENCOUNTER 2019-04-15 16:28 | Emergency (ER) | payer BC ==
--- NOTE | 2019-04-15 16:52 | ER Document Report ---
ED Medical Screen (RME) - General Chief Complaint: Head Injury Stated Complaint: FALL/HEAD PAIN Time Seen by Provider: 04/15/19 16:47 Mode of Arrival: Ambulatory Information source: Patient Notes: 48-year-old female presented to ED for complaint of pain to her left side of the face and left arm and headache. She states that Monday she went to the doctor and they increased her Latuda dose. She states Monday overnight at some point she injured her face her head and her arm and was incontinent of stool on the couch and floor. She states she does not know what happened but the only thing that was different was the increase in the Latuda dose. States she sleeps on the couch so she does not know when she fell or what happened to injure herself. She states that she went to her primary care doctor today and they told her she should come to the emergency room and get checked out. She states she does have a history of anxiety depression bipolar PTSD and her blood pressure check she t akes lisinopril 10 mg for her blood pressure. I have greeted and performed a rapid initial assessment of this patient. A comprehensive ED assessment and evaluation of the patient, analysis of test results and completion of medical decision making process will be conducted by an additional ED providers. TRAVEL OUTSIDE OF THE [place] IN LAST 30 DAYS: No - Related Data Allergies/Adverse Reactions: cephalexin [From Keflex] Allergy (Verified 01/17/19 11:13) Sulfa (Sulfonamide Antibiotics) Allergy (Verified 01/17/19 11:13) Past Medical History - Past Medical History Cardiac Medical History: Reports: Hx Hypertension Neurological Medical History: Reports: Hx Migraine Renal/ Medical History: Denies: Hx Peritoneal Dialysis Past Surgical History: Reports: Hx Section - x 3, Hx Gynecologic Surgery - d+c, Hx Hysterectomy, Hx Tubal Ligation - Immunizations Hx Diphtheria, Pertussis, Tetanus Vaccination: Yes Physical Exam - Vital signs Vitals: Temp Pulse Resp BP Pulse Ox 97.9 F 88 16 130/87 H 100 04/15/19 16:32 04/15/19 16:32 04/15/19 16:32 04/15/19 16:32 04/15/19 16:32 Course - Vital Signs Vital signs: Temp Pulse Resp BP Pulse Ox 97.9 F 88 16 130/87 H 100 04/15/19 16:32 04/15/19 16:32 04/15/19 16:32 04/15/19 16:32 04/15/19 16:32
[2019-04-15 17:42] LABS: ABSOLUTE BASOPHILS # (AUTO) 0.1 10^3/uL (0.0-0.2); ABSOLUTE EOSINOPHILS # (AUTO) 0.7 10^3/uL (0.0-0.6); ABSOLUTE LYMPHOCYTES (AUTO) 2.8 10^3/uL (0.5-4.7); ABSOLUTE MONOCYTES (AUTO) 0.5 10^3/uL (0.1-1.4); ABSOLUTE NEUT (AUTO) 3.9 10^3/uL (1.7-8.2); BASOPHILS % (AUTO) 0.9 % (0-2); EOSINOPHILS % (AUTO) 8.8 % (0-6); HEMATOCRIT 41.2 % (36.0-47.0); HEMOGLOBIN 14.3 g/dL (12.0-15.5); LYMPHOCYTES % (AUTO) 35.6 % (13-45); MEAN CORPUSCULAR HGB CONC 34.6 g/dL (32.0-36.0); MEAN CORPUSCULAR VOLUME 90 fl (80-97); MONOCYTES % (AUTO) 5.9 % (3-13); PLATELET COUNT 335 10^3/uL (150-450); RED BLOOD COUNT 4.59 10^6/uL (3.72-5.28); RED CELL DISTRIBUTION WIDTH 12.6 % (11.5-14.0); SEGMENTED NEUTROPHILS % (AUTO) 48.8 % (42-78); TOTAL CELLS COUNTED % (AUTO) 100 %
[2019-04-15 17:59] LABS: ALBUMIN 4.4 g/dL (3.5-5.0); ALKALINE PHOSPHATASE 76 U/L (38-126); ANION GAP 12 (5-19); ASPARTATE AMINO TRANSFERASE 17 U/L (14-36); BILIRUBIN,DIRECT 0.1 mg/dL (0.0-0.4); BILIRUBIN,TOTAL 0.4 mg/dL (0.2-1.3); BLOOD UREA NITROGEN 24 mg/dL (7-20); CALCIUM 9.9 mg/dL (8.4-10.2); CARBON DIOXIDE 32 mmol/L (22-30); CHLORIDE 97 mmol/L (98-107); GLUCOSE 94 mg/dL (75-110); POTASSIUM 4.5 mmol/L (3.6-5.0)
--- NOTE | 2019-04-15 18:51 | ER Document Report ---
ED General - General Chief Complaint: Head Injury Stated Complaint: FALL/HEAD PAIN Time Seen by Provider: 04/15/19 16:47 Primary Care Provider: ERNESTO THORNE PA-C [Primary Care Provider] - Follow up in 3-5 days Mode of Arrival: Ambulatory Information source: Patient Notes: 48-year-old female presents emergency department with reports that she started feeling weepy went to see her mental health provider and they increased her Latuda up to 80 mg. She reports she was taking 40 mg a day. That night the kids went to stay with their father. She reports the next morning she woke up and she was extremely sore. Her left arm her side of her left face hurt like she had ran into something. She also discovered she been incontinent of stool. She had also changed her close and cleaned up. She did not remember doing any of this. She denies any other new medications. She denies fever vomiting diarrhea. Denies pain with void denies vaginal discharge. She felt a little bit dizzy earlier today but not right now. She denies chest pain shortness of breath. Patient reports the left side of her face still hurts but she declines any kind of pain medication. She did follow-up with her mental health provider today and they decreased her Latuda dose to 60 mg. TRAVEL OUTSIDE OF THE [place] IN LAST 30 DAYS: No - HPI Onset: Other Onset/Duration: Persistent Quality of pain: Achy Pain Level: 3 Associated symptoms: None Exacerbated by: Denies Relieved by: Denies Similar symptoms previously: No Recently seen / treated by doctor: No - Related Data Allergies/Adverse Reactions: cephalexin [From Keflex] Allergy (Verified 01/17/19 11:13) Sulfa (Sulfonamide Antibiotics) Allergy (Verified 01/17/19 11:13) Home Medications: Latuda Past Medical History - General Information source: Patient Last Menstrual Period: hyst - Social History Smoking Status: Unknown if Ever Smoked Cigarette use (# per day): No Frequency of alcohol use: None Drug Abuse: Marijuana Occupation: Neuro clinic Lives with: Family Family History: Other - renal failure- mother on dialysis Patient has suicidal ideation: No Patient has homicidal ideation: No - Past Medical History Cardiac Medical History: Reports: Hx Hypertension Neurological Medical History: Reports: Hx Migraine Renal/ Medical History: Reports: Other - kidney disease. Denies: Hx Peritoneal Dialysis Psychiatric Medical History: Reports: Hx Bipolar Disorder, Hx Post Traumatic Stress Disorder Past Surgical History: Reports: Hx Section - x 3, Hx Gynecologic Surgery - d+c, Hx Hysterectomy, Hx Tubal Ligation - Immunizations Hx Diphtheria, Pertussis, Tetanus Vaccination: Yes Review of Systems - Review of Systems Notes: Review HPI for review of systems., All other systems negative Physical Exam - Vital signs Vitals: Temp Pulse Resp BP Pulse Ox 97.9 F 88 16 130/87 H 100 04/15/19 16:32 04/15/19 16:32 04/15/19 16:32 04/15/19 16:32 04/15/19 16:32 - General General appearance: Appears well, Alert In distress: None - HEENT Head: Normocephalic, Atraumatic Eyes: Normal Conjunctiva: Normal Extraocular movements intact: Yes Pupils: PERRL Ears: Normal External canal: Normal Tympanic membrane: Normal Nasal: Normal Mouth/Lips: Normal Mucous membranes: Dry Pharynx: Normal Neck: Normal, Supple. No: Lymphadenopathy - Respiratory Respiratory status: No respiratory distress Chest status: Nontender Breath sounds: Normal Chest palpation: Normal - Cardiovascular Rhythm: Regular Heart sounds: Normal auscultation - Abdominal Inspection: Normal Distension: No distension Tenderness: Nontender - Back Back: Normal, Nontender - Extremities General upper extremity: Normal ROM, Normal strength General lower extremity: Normal ROM, Normal strength Elbow: Tender - left elbow-no swelling no erythema no ecchymosis good radial pulse cap refill less than 3 - Neurological Neuro grossly intact: Yes Cognition: Normal Orientation: AAOx4 [place] Coma Scale Eye Opening: Spontaneous [place] Coma Scale Verbal: Oriented [place] Coma Scale Motor: Obeys Commands [place] Coma Scale Total: 15 Speech: Normal Cranial nerves: Normal Motor strength normal: LUE, RUE, LLE, RLE Sensory: Normal - Psychological Associated symptoms: Normal affect, Normal mood - Skin Skin Temperature: Warm Skin Moisture: Dry Skin Color: Normal Course - Re-evaluation Re-evalutation: 04/15/19 18:53 48-year-old female presents emergency department with complaints of left-sided head pain. Also reports that sometime Monday night early Monday morning she was incontinent of stool must fell and hit her head. She does not remember anything she does not remember cleaning herself up cleaning the floor CBC is unremarkable renal function has increased. Patient reports she has a history of kidney disease. She reports she is checked by Dr. Iglesias on a regular basis. She reports her mother and grandfather were both in renal failure mother is still on hemodialysis. She denies pain with void. She denies vaginal discharge. She reports she does not drink that much. She reports she has had a left-sided temporal headache since that time. Patient denies fever nausea vo miting diarrhea denies new medications. Reports this is never happened to her in the past. She did start increased dose of Latuda on Monday. She went to her mental health provider today and they decreased the dose back down to 60 mg a day. 04/15/19 20:33 Renal ultrasound is unremarkable renal function increased. I showed patient her labs. Patient reports she does not drink p.o. fluids that much. She was instructed on the importance of pushing fluids, staying well-hydrated especially with her family history of kidney disease.. Consulted Dr. Bond's who advises a CT of the head. 04/15/19 21:42 CT negative patient was instructed on all results. Instructed to follow-up with her primary care provider. She was instructed on the importance of pushing fluids staying hydrated especially with her family history. She verbalized understanding to all instructions. 04/15/19 17:17 04/15/19 17:17 MCV 90 fl (80-97) 04/15/19 17:17 MCH 31.0 pg (27.0-33.4) 04/15/19 17:17 MCHC 34.6 g/dL (32.0-36.0) 04/15/19 17:17 RDW 12.6 % (11.5-14.0) 04/15/19 17:17 Seg Neutrophils % 48.8 % (42-78) 04/15/19 17:17 Chloride 97 mmol/L (98-107) L 04/15/19 17:17 Carbon Dioxide 32 mmol/L (22-30) H 04/15/19 17:17 Anion Gap 12 (5-19) 04/15/19 17:17 Est GFR ( Amer) 46 (>60) L 04/15/19 17:17 Glucose 94 mg/dL (75-110) 04/15/19 17:17 Calcium 9.9 mg/dL (8.4-10.2) 04/15/19 17:17 Total Bilirubin 0.4 mg/dL (0.2-1.3) 04/15/19 17:17 AST 17 U/L (14-36) 04/15/19 17:17 Alkaline Phosphatase 76 U/L (38-126) 04/15/19 17:17 Total Protein 8.0 g/dL (6.3-8.2) 04/15/19 17:17 Albumin 4.4 g/dL (3.5-5.0) 04/15/19 17:17 Serum HCG, Qual NEGATIVE (NEGATIVE) 04/15/19 17:17 Urine Color YELLOW 04/15/19 20:35 Urine Appearance CLEAR 04/15/19 20:35 Urine pH 7.0 (5.0-9.0) 04/15/19 20:35 Ur Specific [place] 1.020 04/15/19 20:35 Urine Protein NEGATIVE mg/dL (NEGATIVE) 04/15/19 20:35 Urine Glucose (UA) NEGATIVE mg/dL (NEGATIVE) 04/15/19 20:35 Urine Ketones NEGATIVE mg/dL (NEGATIVE) 04/15/19 20:35 Urine Blood NEGATIVE (NEGATIVE) 04/15/19 20:35 Urine Nitrite NEGATIVE (NEGATIVE) 04/15/19 20:35 Ur Leukocyte Esterase NEGATIVE (NEGATIVE) 04/15/19 20:35 Urine WBC (Auto) 1 /HPF 04/15/19 20:35 Urine RBC (Auto) 0 /HPF 04/15/19 20:35 Renal Ultrasound 04/15/19 18:29 IMPRESSION: Unremarkable renal ultrasound. Head CT 04/15/19 20:32 IMPRESSION: No acute intracranial findings. - Vital Signs Vital signs: Temp Pulse Resp BP Pulse Ox 97.9 F 88 16 130/87 H 100 04/15/19 16:32 04/15/19 16:32 04/15/19 16:32 04/15/19 16:32 04/15/19 16:32 - Laboratory Result Diagrams: 04/15/19 17:17 04/15/19 17:17 Laboratory results interpreted by me: 04/15/19 04/15/19 04/15/19 17:17 17:17 20:35 Eos % (Auto) 8.8 H Absolute Eos (auto) 0.7 H Chloride 97 L Carbon Dioxide 32 H BUN 24 H Creatinine 1.46 H Est GFR ( Amer) 46 L Est GFR (MDRD) Non-Af 38 L Urine Ascorbic Acid 40 H Discharge - Discharge Clinical Impression: Abnormal renal labs Headache Qualifiers: Headache type: unspecified Headache chronicity pattern: unspecified pattern Intractability: not intractable Qualified Code(s): R51 - Headache Altered mental status Qualifiers: Altered mental status type: unspecified Qualified Code(s): R41.82 - Altered mental status, unspecified Condition: Stable Disposition: HOME, SELF-CARE Instructions: Headache ([facility]) Additional Instructions: *You have been evaluated for altered mental status, headache, abnormal renal labs Your CT of your head was negative, your renal labs were elevated. *Increase your fluids *Follow up with a primary care provider within 1 week for recheck *Return to ED for worsening condition, changes, needs, concerns Referrals: ERNESTO THORNE PA-C [Primary Care Provider] - Follow up in 3-5 days
--- NOTE | 2019-04-15 20:19 | RADIOLOGY REPORT (SQ) ---
US RETROPERITONEUM LIMITED EXAM DATE: 04/15/2019 6:29 PM CYBER SECURITY ANALYST HISTORY: Pain COMPARISON: None. TECHNIQUE: Grayscale and color Doppler ultrasound images of the kidneys were obtained. FINDINGS: The right kidney measures 9.9 cm in length, which is normal size. The cortex has normal thickness and echogenicity. There is no right-sided kidney stone, mass or hydronephrosis. The left kidney measures 11.4 cm in length, which is normal size. The cortex has normal thickness and echogenicity. There is no left-sided kidney stone, mass or hydronephrosis. The urinary bladder is unremarkable. IMPRESSION: Unremarkable renal ultrasound.
[2019-04-15 20:53] LABS: APPEARANCE,URINE CLEAR; BILIRUBIN,URINE NEGATIVE (NEGATIVE); COLOR,URINE YELLOW; GLUCOSE, URINE NEGATIVE (NEGATIVE); KETONES,URINE NEGATIVE (NEGATIVE); LEUKOCYTE ESTERASE,URINE NEGATIVE (NEGATIVE); NITRITE,URINE NEGATIVE (NEGATIVE); PROTEIN,URINE NEGATIVE (NEGATIVE); UROBILINOGEN,URINE NEGATIVE mg/dL (<2.0)
--- NOTE | 2019-04-15 21:19 | RADIOLOGY REPORT (SQ) ---
CT HEAD WITHOUT IV CONTRAST EXAM DATE: 04/15/2019 8:32 PM MILITARY SOURCE OPERATIONS SPECIALIST HISTORY: Fall unwitnessed black out. COMPARISON: None. TECHNIQUE: CT scan of the brain without IV contrast. This exam was performed according to our departmental dose-optimization program, which includes automated exposure control, adjustment of the mA and/or kV according to patient size and/or use of iterative reconstruction technique. FINDINGS: The ventricles, cisterns, and sulci are age-appropriate. No evidence of acute infarction, intracranial hemorrhage, extra-axial fluid collection, or midline shift. No air-fluid levels are seen in the paranasal sinuses to suggest acute sinusitis. No depressed skull fracture. IMPRESSION: No acute intracranial findings.
[2019-04-15 22:18] VITALS: BP 121/81
== END 2019-04-15 21:32 | disposition home or self-care (01) ==
LOC: ER 16:28
DX: R51 Headache (principal); R41.82 Altered mental status, unspecified; R15.9 Full incontinence of feces; R94.4 Abnormal results of kidney function studies; I10 Essential (primary) hypertension; F31.9 Bipolar disorder, unspecified; Z79.899 Other long term (current) drug therapy; F12.10 Cannabis abuse, uncomplicated; Z88.1 Allergy status to other antibiotic agents; Z88.2 Allergy status to sulfonamides; Z84.1 Family history of disorders of kidney and ureter
CPT/HCPCS: 36415; 70450; 76775; 80053; 81001; 84703; 85025; 99284

== ENCOUNTER 2019-09-22 23:17 | Emergency (ER) | payer BC ==
[2019-09-23] MEDS ORDERED: LIDOCAINE 1%/EPINEPHRINE INJ 20 ML VIAL INJ ONE (01:43)
--- NOTE | 2019-09-23 01:46 | ER Document Report ---
ED General - General Chief Complaint: Fall Stated Complaint: FALL HEAD INJURY Time Seen by Provider: 09/23/19 01:32 Primary Care Provider: ERNESTO THORNE PA-C [Primary Care Provider] - Follow up as needed Notes: Patient is a 49-year-old female that comes emergency department for chief complaint of a head injury. She states that she is unsure if she passed out first or if she hit her head first. She states that she must have stumbled and struck her head on the side/corner of her bedroom wall, she states she vaguely members getting up to go to the bathroom. She states that she woke up on the floor, she states that her daughter told her that her "eyes were rolled back and my mouth was twitching". Patient denies being told that she had seizure activity, she denies history of seizures, she denies alcohol, she is not on a blood thinner. Patient reports a history of bipolar/anxiety/depression, PTSD, denies medical history otherwise. TRAVEL OUTSIDE OF THE [place] IN LAST 30 DAYS: No - Related Data Allergies/Adverse Reactions: cephalexin [From Keflex] Allergy (Verified 01/17/19 11:13) Sulfa (Sulfonamide Antibiotics) Allergy (Verified 01/17/19 11:13) Past Medical History - General Information source: Patient - Social History Smoking Status: Former Smoker Frequency of alcohol use: None Drug Abuse: None Lives with: Family Family History: Other - renal failure- mother on dialysis Patient has homicidal ideation: No - Past Medical History Cardiac Medical History: Reports: Hx Hypertension Neurological Medical History: Reports: Hx Migraine Renal/ Medical History: Denies: Hx Peritoneal Dialysis Psychiatric Medical History: Reports: Hx Bipolar Disorder, Hx Post Traumatic Stress Disorder Past Surgical History: Reports: Hx Section - x 3, Hx Gynecologic S urgery - d+c, Hx Hysterectomy, Hx Tubal Ligation - Immunizations Hx Diphtheria, Pertussis, Tetanus Vaccination: Yes Review of Systems - Review of Systems Constitutional: No symptoms reported EENT: No symptoms reported Cardiovascular: See HPI Respiratory: No symptoms reported Gastrointestinal: No symptoms reported Genitourinary: No symptoms reported Female Genitourinary: No symptoms reported Musculoskeletal: No symptoms reported Skin: See HPI Hematologic/Lymphatic: No symptoms reported Neurological/Psychological: See HPI Physical Exam - Vital signs Vitals: Pulse BP Pulse Ox 81 119/85 100 09/22/19 23:27 09/22/19 23:27 09/22/19 23:27 - Notes Notes: GENERAL: Alert, interacts well. No acute distress. HEAD: Normocephalic. There is a large curved wound over the right temporal area that is approximately 5.5 cm in length and full-thickness. EYES: Pupils equal, round, and reactive to light. Extraocular movements intact. ENT: Oral mucosa moist, tongue midline. Oropharynx unremarkable. Airway patent. Nares patent, sinuses non-tender, ear canals unremarkable, TM's intact. NECK: Full range of motion. Supple. Trachea midline. No lymphadenopathy. LUNGS: Clear to auscultation bilaterally, no wheezes, rales, or rhonchi. No respiratory distress. Non-tender chest wall. HEART: Regular rate and rhythm. No murmur ABDOMEN: Soft, non-tender. Non-distended. Bowel sounds present in all 4 quadrants. GENITOURINARY: Deferred EXTREMITIES: Moves all 4 extremities spontaneously. No edema, normal radial and dorsalis pedis pulses bilaterally. No cyanosis. BACK: Non-tender back generally on palpation. No midline tenderness, no saddle anesthesia, no signs of trauma. Normal upper and lower extremity range of motion, normal strength, normal distal neurovascular exam. NEUROLOGICAL: Alert and oriented x3. Normal speech. Cranial nerves II through XII grossly intact. Strength 5/5 in all extremities. PSYCH: Slightly flat affect but makes good contact and has appropriate conversation SKIN: Warm, dry, normal turgor. No rashes or lesions noted. Course - Re-evaluation Re-evalutation: Patient has a large wound to the right temporal scalp, she is unsure if she had a syncopal episode which caused the injury or if she tripped, hit her head, and passed out. I feel this is more likely to be a mechanical fall with injury because patient does remember getting up to go to the bathroom. Patient also states she has done this several times in the past however so it might be a syncopal episode. Regardless work-up is reassuring including CBC, chemistry, CT of the head was negative, chest x-ray unremarkable, EKG unremarkable. Patient has no symptoms other than pain to the wound, patient has no other signs of injury. Patient able to get up and ambulate without any difficulty. Patient oriented, not vomiting, has no neurological deficits on exam. Wound was repaired with savannah after thorough cleansing. I discussed work-up, head injury precautions, postconcussive syndrome, and primary care follow-up. Patient states understanding and agreement. Stable and well-appearing at time of discharge, going home with family. - Vital Signs Vital signs: Temp Pulse Resp BP Pulse Ox 97.6 F 90 12 117/85 100 09/23/19 03:54 09/23/19 03:54 09/23/19 03:54 09/23/19 03:54 09/23/19 03:54 - Laboratory Result Diagrams: 09/23/19 02:14 09/23/19 02:14 Laboratory results interpreted by me: 09/23/19 09/23/19 02:14 02:14 WBC 12.0 H Hgb 16.1 H Lymph % (Auto) 12.9 L Absolute Neuts (auto) 9.6 H Seg Neutrophils % 79.9 H Chloride 91 L Carbon Dioxide 37 H Creatinine 1.55 H Est GFR ( Amer) 43 L Est GFR (MDRD) Non-Af 36 L Glucose 124 H Calcium 10.5 H - EKG Interpretation by Me Additional EKG results interpreted by me: EKG shows sinus rhythm at a rate of 88, QTC of 460, normal axis. No T wave inversions or ST segment changes in consecutive leads. Procedures - Laceration/Wound Repair Right temporal scalp Wound length (cm): 5.5 Wound's Depth, Shape: Irregular Laceration pre-procedure: Sterile PPE donned, Sterile drapes applied Anesthetic type: 1% Lidocaine w/epi Wound explored: Clean, No foreign body removed Wound Repaired With: [place] Number of Sutures: 11 - [place] Layer Closure?: No Post-procedure NV exam normal: Yes Complications: No Discharge - Discharge Clinical Impression: Head injury Qualifiers: Encounter type: initial encounter Qualified Code(s): S09.90XA - Unspecified injury of head, initial encounter Scalp laceration Qualifiers: Encounter type: initial encounter Qualified Code(s): S01.01XA - Laceration without foreign body of scalp, initial encounter Episode of syncope Qualifiers: Syncope type: unspecified Qualified Code(s): R55 - Syncope and collapse Condition: Stable Disposition: HOME, SELF-CARE Additional Instructions: Your evaluation is reassuring. The savannah need to be removed in approximately 7 days at a medical facility. Keep the area clean, clean with soap and water but avoid hard scrubbing or soaking. Please follow head injury cautions listed below. You most likely will have some postconcussive symptoms as well but these should resolve with time. Your kidney function is slightly elevated, similar to previous times, this needs to be rechecked and monitored by primary care. Return to the emergency department for any concerning symptoms. Head Injury Precautions At this point, there is no evidence that your head injury is serious. Observation is necessary, however. Limit activity for the first 24 hours. During the first 24 hours, check to see approximately every two to three hours that the patient is easily arousable, responds normally, and can perform common tasks such as walking without difficulty. Contact your doctor or go to the hospital if any of the following things occur: Persistent vomiting, difficulty in arousing the patient, worsening or continued headache, or failure to improve as expected. Head injuries can cause symptoms that persist for a few days or even a few weeks. Post-Concussion Syndrome Post-concussion syndrome often follows a mild head injury. Dizziness, mild nausea, mild headache, trouble concentrating, and a general sense of "not being right" may persist for a week or two. This is a frequent complication of concussion. However, if the symptoms worsen, or new symptoms develop, you should be re-examined by the physician. There is no specific cure for post-concussion syndrome. You can take mild pain medication such as ibuprofen or acetaminophen. While you should not drive if you are dizzy, you can get back to your regular activities as quickly as the symptoms will allow. And while vigorous exercise may worsen the headache, mild physical activity often is helpful. Sitting and thinking about your symptoms will worsen them. If difficulties continue, you may need referral for special therapy to help you regain full mental function. Call the physician if you are worsening, or if symptoms are still present in one week. Report any new symptoms immediately. Forms: Return to Work Referrals: ERNESTO THORNE PA-C [Primary Care Provider] - Follow up as needed
--- NOTE | 2019-09-23 02:18 | RADIOLOGY REPORT (SQ) ---
CT of the head: 09/23/2019 1:16 AM CDT HISTORY: 49-year-old patient with syncope. COMPARISON: None available TECHNIQUE: Multiple axial contiguous images were obtained through the head without intravenous contrast administered. This exam was performed according to our departmental dose-optimization program, which includes automated exposure control, adjustment of the mA and/or KV according to the patient's size and/or use of iterative reconstruction technique. FINDINGS: The ventricles and cerebral sulci demonstrate mild prominence, consistent with cerebral atrophy. There are mild periventricular hypodensities, suggestive of periventricular white matter changes. The hernandez-white matter differentiation is within normal limits. Both orbits appear unremarkable. The mastoid air cells appear clear. The visualized paranasal sinuses appear clear. The calvarium is intact. No extra-axial fluid collection is seen. No midline shift or mass effect is apparent. There are no findings to suggest acute intracranial hemorrhage. IMPRESSION: 1. No acute intracranial hemorrhage is seen. 2. Mild cerebral atrophy and periventricular white matter changes are seen.
--- NOTE | 2019-09-23 02:37 | RADIOLOGY REPORT (SQ) ---
AP Portable chest: 09/23/2019 1:36 AM CDT History: 49-year old patient with syncope. Comparison: None available Findings: The cardiomediastinal silhouette is normal in size. No pneumothorax is seen. No acute airspace opacities are seen. No discrete pleural effusion is apparent. Impression: No acute airspace opacities are seen.
[2019-09-23] MEDS ORDERED: LIDOCAINE 1% INJ (10 MG/ML) 10 ML MDV INJ ONE ×2 (02:38→02:44)
[2019-09-23] MEDS ORDERED: LIDOCAINE 1% INJ-PF (10 MG/ML) 30 ML SDV ONE (02:40)
[2019-09-23 02:45] LABS: ABSOLUTE EOSINOPHILS # (AUTO) 0.2 10^3/uL (0.0-0.6); ABSOLUTE LYMPHOCYTES (AUTO) 1.5 10^3/uL (0.5-4.7); ABSOLUTE MONOCYTES (AUTO) 0.7 10^3/uL (0.1-1.4); ABSOLUTE NEUT (AUTO) 9.6 10^3/uL (1.7-8.2); BASOPHILS % (AUTO) 0.3 % (0-2); EOSINOPHILS % (AUTO) 1.3 % (0-6); HEMATOCRIT 45.2 % (36.0-47.0); HEMOGLOBIN 16.1 g/dL (12.0-15.5); LYMPHOCYTES % (AUTO) 12.9 % (13-45); MEAN CORPUSCULAR HEMOGLOBIN 31.5 pg (27.0-33.4); MEAN CORPUSCULAR HGB CONC 35.5 g/dL (32.0-36.0); MEAN CORPUSCULAR VOLUME 89 fl (80-97); MONOCYTES % (AUTO) 5.6 % (3-13); PLATELET COUNT 286 10^3/uL (150-450); RED BLOOD COUNT 5.09 10^6/uL (3.72-5.28); RED CELL DISTRIBUTION WIDTH 12.8 % (11.5-14.0); SEGMENTED NEUTROPHILS % (AUTO) 79.9 % (42-78); TOTAL CELLS COUNTED % (AUTO) 100 %
[2019-09-23 03:11] LABS: ALBUMIN 4.8 g/dL (3.5-5.0); ALKALINE PHOSPHATASE 63 U/L (38-126); ANION GAP 9 (5-19); ASPARTATE AMINO TRANSFERASE 22 U/L (14-36); BILIRUBIN,TOTAL 0.6 mg/dL (0.2-1.3); BLOOD UREA NITROGEN 19 mg/dL (7-20); CALCIUM 10.5 mg/dL (8.4-10.2); CARBON DIOXIDE 37 mmol/L (22-30); CHLORIDE 91 mmol/L (98-107); GLUCOSE 124 mg/dL (75-110)
[2019-09-23 03:59] VITALS: BP 117/85
--- NOTE | 2019-09-23 07:18 | EKG REPORT ---
SEVERITY:- ABNORMAL ECG - SINUS RHYTHM NONSPECIFIC INTRAVENTRICULAR CONDUCTION DELAY : Confirmed by: Clarke Dawkins MD 23-Sep-2019 07:17:34
== END 2019-09-23 03:58 | disposition home or self-care (01) ==
LOC: ER 23:17
DX: S01.01XA Laceration without foreign body of scalp, initial encounter (principal); W19.XXXA Unspecified fall, initial encounter; R55 Syncope and collapse; I10 Essential (primary) hypertension; Z87.891 Personal history of nicotine dependence; Y93.89 Activity, other specified; Z88.1 Allergy status to other antibiotic agents; Z88.2 Allergy status to sulfonamides
CPT/HCPCS: 93005; 99284; 36415; 84703; 85025; 80053; 84484; 71045; 70450; 93010; 12002; J3490 ×2

== ENCOUNTER 2019-09-30 17:03 | Emergency (ER) | payer BC ==
[2019-09-30 17:16] VITALS: BP 145/98
--- NOTE | 2019-09-30 17:25 | ER Document Report ---
HPI - HPI Time Seen by Provider: 09/30/19 17:09 Pain Level: Denies Notes: Patient is a 41-year-old female requesting staple removal. Patient had savannah placed to the back of her scalp 9 days ago. She denies any other symptoms. - CONSTITUTIONAL Constitutional: DENIES: Fever, Chills - REPRODUCTIVE Reproductive: DENIES: : Past Medical History - General Information source: Patient - Social History Smoking Status: Never Smoker Chew tobacco use (# tins/day): No Frequency of alcohol use: Rare Drug Abuse: None Family History: Other - renal failure- mother on dialysis Patient has homicidal ideation: No - Past Medical History Cardiac Medical History: Reports: Hx Hypertension Neurological Medical History: Reports: Hx Migraine Renal/ Medical History: Denies: Hx Peritoneal Dialysis Psychiatric Medical History: Reports: Hx Bipolar Disorder, Hx Post Traumatic Stress Disorder Past Surgical History: Reports: Hx Section - x 3, Hx Gynecologic Surgery - d+c, Hx Hysterectomy, Hx Tubal Ligation - Immunizations Hx Diphtheria, Pertussis, Tetanus Vaccination: Yes Vertical Provider Document - CONSTITUTIONAL Notes: PHYSICAL EXAMINATION: GENERAL: Well-appearing, well-nourished and in no acute distress. HEAD: Atraumatic, normocephalic. EYES: Pupils equal round extraocular movements intact, conjunctiva are normal. ENT: Nares patent NECK: Normal range of motion LUNGS: No respiratory distress Musculoskeletal: Normal range of motion NEUROLOGICAL: Normal speech, normal gait. PSYCH: Normal mood, normal affect. SKIN: Healed laceration to posterior scalp, [address] no surrounding erythema or exudates. - INFECTION CONTROL TRAVEL OUTSIDE OF THE [place] IN LAST 30 DAYS: No Course - Re-evaluation Re-evalutation: Savannah removed. They were 11 in total. She states there were initially 12 but 1 fell out on its own. - Vital Signs Vital signs: Temp Pulse Resp BP Pulse Ox 98.1 F 109 H 18 145/98 H 100 09/30/19 17:16 09/30/19 17:15 09/30/19 17:15 09/30/19 17:15 09/30/19 17:15 Discharge - Discharge Clinical Impression: Encounter for staple removal Condition: Stable Disposition: HOME, SELF-CARE Additional Instructions: Please follow-up with a primary care provider regarding your continued concussion symptoms. Referrals: JAMES HOLLY MD [COMMUNITY BASED STAFF] - Follow up as needed GILLIAN FERNANDES MD [NO LOCAL MD] - Follow up as needed
== END 2019-09-30 17:31 | disposition home or self-care (01) ==
LOC: ER 17:03
DX: S01.01XD Laceration without foreign body of scalp, subsequent encounter (principal); W45.8XXD Other foreign body or object entering through skin, subsequent encounter; I10 Essential (primary) hypertension; Z90.710 Acquired absence of both cervix and uterus

== ENCOUNTER 2020-02-02 13:39 | Observation (INO) | payer BC ==
--- NOTE | 2020-02-02 13:53 | ER Document Report ---
ED Medical Screen (RME) - General Chief Complaint: Palpitations Stated Complaint: PALPITATIONS Time Seen by Provider: 02/02/20 13:47 Primary Care Provider: ERNESTO THORNE PA-C [Primary Care Provider] - Follow up as needed Information source: Patient Notes: Patient presents complaining of palpitations off and on for the past 3 days. Patient denies any cough or chest pain symptoms. Patient does report nausea as well as occasional shortness of breath. Patient reports occasional cold sweats. Patient states that she has been taking phentermine although stopped whenever she started having palpitations. I have greeted and performed a rapid initial assessment of this patient. A comprehensive ED assessment and evaluation of the patient, analysis of test results and completion of the medical decision making process will be conducted by additional ED providers. TRAVEL OUTSIDE OF THE [place] IN LAST 30 DAYS: No - Related Data Allergies/Adverse Reactions: cephalexin [From Keflex] Allergy (Verified 09/30/19 17:16) Sulfa (Sulfonamide Antibiotics) Allergy (Verified 09/30/19 17:16) Past Medical History - Past Medical History Cardiac Medical History: Reports: Hx Hypertension Neurological Medical History: Reports: Hx Migraine Renal/ Medical History: Denies: Hx Peritoneal Dialysis Psychiatric Medical History: Reports: Hx Bipolar Disorder, Hx Post Traumatic Stress Disorder Past Surgical History: Reports: Hx Section - x 3, Hx Gynecologic Surgery - d+c, Hx Hysterectomy, Hx Tubal Ligation - Immunizations Hx Diphtheria, Pertussis, Tetanus Vaccination: Yes Physical Exam - Respiratory Respiratory status: No respiratory distress Breath sounds: Normal - Cardiovascular Rhythm: Regular Heart sounds: S1 appreciated, S2 appreciated Doctor's Discharge - Discharge Referrals: ERNESTO THORNE PA-C [Primary Care Provider] - Follow up as needed
[2020-02-02 14:27] LABS: ABSOLUTE EOSINOPHILS # (AUTO) 0.3 10^3/uL (0.0-0.6); ABSOLUTE LYMPHOCYTES (AUTO) 1.9 10^3/uL (0.5-4.7); ABSOLUTE MONOCYTES (AUTO) 0.5 10^3/uL (0.1-1.4); ABSOLUTE NEUT (AUTO) 3.5 10^3/uL (1.7-8.2); BASOPHILS % (AUTO) 0.8 % (0-2); EOSINOPHILS % (AUTO) 4.2 % (0-6); HEMATOCRIT 41.7 % (36.0-47.0); LYMPHOCYTES % (AUTO) 30.2 % (13-45); MEAN CORPUSCULAR HEMOGLOBIN 32.2 pg (27.0-33.4); MEAN CORPUSCULAR HGB CONC 36.1 g/dL (32.0-36.0); MEAN CORPUSCULAR VOLUME 89 fl (80-97); MONOCYTES % (AUTO) 7.6 % (3-13); PLATELET COUNT 385 10^3/uL (150-450); RED BLOOD COUNT 4.67 10^6/uL (3.72-5.28); RED CELL DISTRIBUTION WIDTH 12.9 % (11.5-14.0); SEGMENTED NEUTROPHILS % (AUTO) 57.2 % (42-78); TOTAL CELLS COUNTED % (AUTO) 100 %; WHITE BLOOD COUNT 6.1 10^3/uL (4.0-10.5)
--- NOTE | 2020-02-02 14:29 | RADIOLOGY REPORT (SQ) ---
EXAM DESCRIPTION: CHEST SINGLE VIEW IMAGES COMPLETED DATE/TIME: 02/02/2020 2:06 pm REASON FOR STUDY: palpitations COMPARISON: Chest radiograph 09/23/2019 NUMBER OF VIEWS: One view. TECHNIQUE: Single frontal radiographic view of the chest acquired. LIMITATIONS: None. FINDINGS: LUNGS AND PLEURA: No opacities, masses or pneumothorax. No pleural effusion. MEDIASTINUM AND HILAR STRUCTURES: No masses. Contour normal. HEART AND VASCULAR STRUCTURES: Heart normal in size. Normal vasculature. BONES: No acute findings. HARDWARE: None in the chest. OTHER: No other significant finding. IMPRESSION: NO SIGNIFICANT RADIOGRAPHIC FINDING IN THE CHEST. TECHNICAL DOCUMENTATION: JOB ID: [id number] 2010 [employer]- All Rights Reserved Reading location - IP/workstation name: [email or web address]
--- NOTE | 2020-02-02 14:39 | ER Document Report ---
ED General - General Chief Complaint: Palpitations Stated Complaint: PALPITATIONS Time Seen by Provider: 02/02/20 13:47 Primary Care Provider: ERNESTO THORNE PA-C [Primary Care Provider] - Follow up as needed Mode of Arrival: Ambulatory Information source: Patient Notes: 49-year-old female patient presented to the emergency department chief complaint of palpitations that have been ongoing for the last 2 days. Patient denies any chest pain. She reports mild shortness of breath and intermittent nausea. She denies any history of any respiratory issues. She has not had cough or congestion. She does report that she takes phentermine, she stopped taking it a few days ago when the palpitations started. She reports that she takes medication for "swelling". She states this was prescribed by a PA that she works with. [facility]. TRAVEL OUTSIDE OF THE [place] IN LAST 30 DAYS: No - Related Data Allergies/Adverse Reactions: cephalexin [From Keflex] Allergy (Verified 09/30/19 17:16) Sulfa (Sulfonamide Antibiotics) Allergy (Verified 09/30/19 17:16) Past Medical History - General Information source: Patient - Social History Smoking Status: Former Smoker Frequency of alcohol use: None Drug Abuse: None Family History: Other - renal failure- mother on dialysis - Past Medical History Cardiac Medical History: Reports: Hx Hypertension Neurological Medical History: Reports: Hx Migraine Renal/ Medical History: Denies: Hx Peritoneal Dialysis Psychiatric Medical History: Reports: Hx Bipolar Disorder, Hx Post Traumatic Stress Disorder Past Surgical History: Reports: Hx Section - x 3, Hx Gynecologic Surgery - d+c, Hx Hysterectomy, Hx Tubal Ligation - Immunizations Hx Diphtheria, Pertussis, Tetanus Vaccination: Yes Review of Systems - Review of Systems Constitutional: No symptoms reported Cardiovascular: Palpitations. denies: Chest pain, Dyspnea Respiratory: Short of breath - mild/intermittent Gastrointestinal: No symptoms reported Genitourinary: No symptoms reported Female Genitourinary: No symptoms reported Musculoskeletal: No symptoms reported Skin: No symptoms reported Hematologic/Lymphatic: No symptoms reported Neurological/Psychological: No symptoms reported Physical Exam - Vital signs Vitals: Resp BP Pulse Ox 10 L 120/88 H 100 02/02/20 14:08 02/02/20 14:08 02/02/20 14:08 - Notes Notes: PHYSICAL EXAMINATION: GENERAL: Well-appearing, well-nourished and in no acute distress. HEAD: Atraumatic, normocephalic. EYES: Pupils equal round and reactive to light, extraocular movements intact, conjunctiva are normal. ENT: Nares patent, oropharynx clear without exudates. Moist mucous membranes. NECK: Normal range of motion, supple without lymphadenopathy LUNGS: Breath sounds clear to auscultation bilaterally and equal. No wheezes rales or rhonchi. HEART: Regular rate and rhythm without murmurs ABDOMEN: Soft, nontender, nondistended abdomen. No guarding, no rebound. No masses appreciated. Female : deferred Musculoskeletal: Normal range of motion, no pitting or edema. No cyanosis. NEUROLOGICAL: Cranial nerves grossly intact. Normal speech, normal gait. Normal sensory, motor exams PSYCH: Normal mood, normal affect. SKIN: Warm, Dry, normal turgor, no rashes or lesions noted. Course - Re-evaluation Re-evalutation: 02/02/20 16:38 Patient has prescribed multiple diuretics, she states the only one she is taking is the torsemide 200 mg daily. Called and spoke with hospitalist, Bria Fonseca MARKET DEVELOPMENT EXECUTIVE, she agrees to admit the patient for acute kidney injury and hypokalemia. - Vital Signs Vital signs: Temp Pulse Resp BP Pulse Ox 98.2 F 16 120/78 100 02/02/20 14:41 02/02/20 14:59 02/02/20 15:00 02/02/20 14:59 - Laboratory Result Diagrams: 02/02/20 14:13 02/02/20 14:13 Laboratory results interpreted by me: 02/02/20 02/02/20 02/02/20 14:13 14:13 14:13 MCHC 36.1 H Sodium 135.7 L Potassium 2.2 L* Chloride 84 L Carbon Dioxide 39 H BUN 35 H Creatinine 2.18 H Est GFR ( Amer) 29 L Est GFR (MDRD) Non-Af 24 L Glucose 135 H Magnesium 2.6 H Total Protein 8.7 H TSH 7.75 H - Diagnostic Test Radiology reviewed: Image reviewed, Reports reviewed - EKG Interpretation by Ma EKG shows normal: Sinus rhythm Rate: Normal - Rate of 78, QTc 484, normal axis, normal intervals, no ST segment elevations or depressions. Discharge - Discharge Clinical Impression: MARTELL (acute kidney injury), Hypokalemia Condition: Stable Disposition: ADMITTED OBSERVATION Admitting Provider: Dr. Rodriguez, Hospitalist, per MARKET DEVELOPMENT EXECUTIVE [place] [facility] Admitted: Telemetry Referrals: ERNESTO THORNE PA-C [Primary Care Provider] - Follow up as needed
[2020-02-02 14:45] LABS: ALBUMIN 4.9 g/dL (3.5-5.0); ALKALINE PHOSPHATASE 95 U/L (38-126); ANION GAP 13 (5-19); ASPARTATE AMINO TRANSFERASE 22 U/L (14-36); BILIRUBIN,DIRECT 0.1 mg/dL (0.0-0.4); BLOOD UREA NITROGEN 35 mg/dL (7-20); CARBON DIOXIDE 39 mmol/L (22-30); CHLORIDE 84 mmol/L (98-107); GLUCOSE 135 mg/dL (75-110); TOTAL PROTEIN 8.7 g/dL (6.3-8.2)
[2020-02-02 14:47] LABS: POTASSIUM 2.2 mmol/L (3.6-5.0)
[2020-02-02] MEDS ORDERED: POTASSIUM CHLORIDE 10 MEQ TABLET.ER PO ONE (14:52)
[2020-02-02] MEDS ORDERED: NORMAL SALINE 1000 ML 1,000 ML IV ONE (15:05)
[2020-02-02] MEDS: POTASSI CL 20 MEQ/50 ML RIDER 20 MEQ/50 ML RTUPB IV SCH ×2 (15:26→17:31)
[2020-02-02] MEDS ORDERED: MAGNESIUM HYDROXIDE SUSP 30 ML UDCUP PO PRN (17:19)
[2020-02-02] MEDS ORDERED: PROMETHAZINE HCL INJ 25 MG/1 ML VIAL IV PRN (17:19)
[2020-02-02] MEDS ORDERED: ALBUTEROL SULFATE 0.083% NEB 2.5 MG/3 ML AMPUL NEB PRN (17:19)
[2020-02-02] MEDS ORDERED: MAG HYDROX/AL HYDROX/SIMETH SUSP 30 ML UDCUP PO PRN (17:19)
[2020-02-02] MEDS ORDERED: ZOLPIDEM TARTRATE 5 MG TABLET PO PRN (17:19)
[2020-02-02] MEDS ORDERED: ACETAMINOPHEN 325 MG TABLET PO PRN (17:19)
--- NOTE | 2020-02-02 17:36 | PDOC H&P ---
History of Present Illness Admission Date/PCP: ERNESTO THORNE PA-C Patient complains of: palpitations History of Present Illness: MAHESH BRASHER is a 49 year old female with past medical history significant for bipolar depression/anxiety and possible anorexia (patient reports she has just established w/ psychiatry to address her food aversion); previously on ant ihypertensives but has since had an intentional 100 lb weight loss who presented to the ED today with a complaint of palpitations. Evaluation in the ED found stable Vital Signs and NSR by EKG and telemetry monitoring. CBC was unremarkable. Chemistry revealed hypokalemia (2.2) and an acute kidney injury (BUN 35/Cr 2.18). Troponin nml. TSH elevated to 7.75. She is provided 1 L NS and Potassium 40 mEq po and 40 mEq IV. She is referred to the hospitalist service for further evaluation and management of the above complaints and findings. Past Medical History Cardiac Medical History: Reports: Hypertension Denies: Atrial Fibrillation, Congestive Heart Failure, Coronary Artery Disease, Myocardial Infarction, Hyperlipidema Pulmonary Medical History: Reports: None Neurological Medical History: Reports: Migraine Endocrine Medical History: Denies: Diabetes Mellitus Type 2, Hypothyroidism Renal/ Medical History: Reports: None Malignancy Medical History: Reports: None GI Medical History: Reports: None Musculoskeltal Medical History: Reports: None Skin Medical History: Reports: None Psychiatric Medical History: Reports: Bipolar Disorder, Depression, Post Traumatic Stress Disorder, Other - Possible Anorexia Hematology: Reports: Anemia Infectious Medical History: Reports: None Past Surgical History Past Surgical History: Reports: Section - x 3, Hysterectomy, Tubal Ligation Social History Information Source: Patient Lives with: Family Smoking Status: Former Smoker Electronic Cigarette use?: No Frequency of Alcohol Use: None Hx Recreational Drug Use: No Drugs: None Hx Prescription Drug Abuse: No - Advance Directive Resuscitation Status: Full Code Family History Family History: Hypertension - CHF, Other - renal failure- mother on dialysis Parental Family History Reviewed: Yes Children Family History Reviewed: Yes Sibling(s) Family History Reviewed.: Yes Medication/Allergy Home Medications: Furosemide [Lasix 80 mg Tablet] 80 mg PO PRN PRN 01/17/19 Topiramate [Trokendi Xr] 200 mg PO DAILY 01/17/19 Trazodone HCl 100 mg PO HSP PRN 01/17/19 Vilazodone HCl [Viibryd] 40 mg PO QHS 01/17/19 Lamotrigine [Lamictal] 100 mg PO QHS 09/22/19 Lorazepam [Ativan 1 mg Tablet] 2 mg PO PRN PRN 09/22/19 Phentermine HCl 37.5 mg PO DAILY 09/22/19 Sumatriptan Succinate [Imitrex] 4 mg SQ PRN PRN 09/22/19 Allergies/Adverse Reactions: cephalexin [From Keflex] Allergy (Verified 09/30/19 17:16) Sulfa (Sulfonamide Antibiotics) Allergy (Verified 09/30/19 17:16) Review of Systems Constitutional: PRESENT: fatigue. ABSENT: chills, fever(s), headache(s), weight gain, weight loss Eyes: ABSENT: visual disturbances Ears: ABSENT: hearing changes Cardiovascular: PRESENT: palpitations. ABSENT: chest pain, dyspnea on exertion, edema, orthropnea Respiratory: ABSENT: cough, hemoptysis Gastrointestinal: ABSENT: abdominal pain, constipation, diarrhea, hematemesis, hematochezia, nausea, vomiting Genitourinary: ABSENT: dysuria, hematuria Musculoskeletal: ABSENT: joint swelling Integumentary: ABSENT: rash, wounds Neurological: ABSENT: abnormal gait, abnormal speech, confusion, dizziness, focal weakness, syncope Psychiatric: ABSENT: anxiety, depression, homidical ideation, suicidal ideation Endocrine: ABSENT: cold intolerance, heat intolerance, polydipsia, polyuria Hematologic/Lymphatic: ABSENT: easy bleeding, easy bruising Physical Exam Vital Signs: Temp Pulse Resp BP Pulse Ox 98.2 F 16 120/78 100 02/02/20 14:41 02/02/20 14:59 02/02/20 15:00 02/02/20 14:59 Intake & Output 02/01/20 02/02/20 02/03/20 06:59 06:59 06:59 Weight 72.6 kg General appearance: PRESENT: no acute distress, cooperative, well-developed, well-nourished Head exam: PRESENT: atraumatic, normocephalic Eye exam: PRESENT: conjunctiva pink, EOMI, PERRLA. ABSENT: scleral icterus Ear exam: PRESENT: normal external ear exam Mouth exam: PRESENT: dry mucosa, tongue midline Respiratory exam: PRESENT: clear to auscultation iris, symmetrical, unlabored. ABSENT: rales, rhonchi, wheezes Cardiovascular exam: PRESENT: RRR, +S1, +S2. ABSENT: diastolic murmur, rubs, systolic murmur Pulses: PRESENT: normal dorsalis pedis pul Vascular exam: PRESENT: normal capillary refill GI/Abdominal exam: PRESENT: normal bowel sounds, soft. ABSENT: distended, guarding, mass, organolmegaly, rebound, tenderness Rectal exam: PRESENT: deferred Extremities exam: PRESENT: full ROM. ABSENT: calf tenderness, clubbing, pedal edema, +1 edema Musculoskeletal exam: PRESENT: ambulatory Neurological exam: PRESENT: alert, awake, oriented to person, oriented to place, oriented to time, oriented to situation, CN II-XII grossly intact. ABSENT: motor sensory deficit Psychiatric exam: PRESENT: appropriate affect, normal mood. ABSENT: homicidal ideation, suicidal ideation Skin exam: PRESENT: dry, intact, warm. ABSENT: cyanosis, rash Results Laboratory Results: 02/02/20 14:13 02/02/20 14:13 02/02/20 02/02/20 02/02/20 14:13 14:13 14:13 WBC 6.1 RBC 4.67 Hgb 15.0 Hct 41.7 MCV 89 MCH 32.2 MCHC 36.1 H RDW 12.9 Plt Count 385 Seg Neutrophils % 57.2 Sodium 135.7 L Potassium 2.2 L* Chloride 84 L Carbon Dioxide 39 H Anion Gap 13 BUN 35 H Creatinine 2.18 H Est GFR ( Amer) 29 L Glucose 135 H Calcium 10.0 Magnesium 2.6 H Total Bilirubin 1.0 AST 22 Alkaline Phosphatase 95 Total Protein 8.7 H Albumin 4.9 TSH 7.75 H 02/02/20 14:13 Troponin I < 0.012 Impressions: Chest X-Ray 02/02/20 13:51 IMPRESSION: NO SIGNIFICANT RADIOGRAPHIC FINDING IN THE CHEST. Assessment and Plan - Diagnosis (1) Palpitations Is this a current diagnosis for this admission?: Yes Plan: Likely secondary to hypokalemia and MARTELL. Trend troponins; initial is nml. EKG reassuring. Check proBNP Monitor on telemetry. (2) MARTELL (acute kidney injury) Is this a current diagnosis for this admission?: Yes Plan: Likely pre-renal secondary to poor p.o. intake and use of torsemide. Generous IVF. Encourage p.o fluids Avoid nephrotoxic medications as able. Follow chemistries. (3) Hypokalemia Is this a current diagnosis for this admission?: Yes Plan: Likely secondary to poor p.o. intake and use of torsemide resulting in MARTELL. IV and PO replacement by ED provider. Mag level is acceptable. Follow up chemistry. (4) HTN (hypertension) Is this a current diagnosis for this admission?: Yes Plan: Not on blood pressure medications currently. Patient states torsemide was prescribed for edema. Monitor and initiate oral therapy as indicated. (5) Bipolar disorder Qualifiers: Active/Remission status: in partial remission Most recent bipolar episode type: most recent episode unspecified type Qualified Code(s): F31.70 - Bipolar disorder, currently in remission, most recent episode unspecified Is this a current diagnosis for this admission?: Yes Plan: Continue home dose Latuda. May use home medications; Fluvoxamine is non-formulary. Supportive Care. - Time Time Spent with patient: 35 or more minutes Medications reviewed and adjusted accordingly: Yes Anticipated Discharge Disposition: Home, Self Care Anticipated Discharge Timeframe: within 72 hours
[2020-02-02 18:03] LABS: FREE T3 3.67 pg/mL (2.77-5.27); FREE T4 (FREE THYROXINE) 1.2 ng/dL (0.78-2.19)
[2020-02-02] MEDS: NORMAL SALINE 1000 ML 1,000 ML IV PRN (22:13)
[2020-02-02] MEDS: FAMOTIDINE 20 MG TABLET PO SCH (22:15)
[2020-02-02] MEDS: HEPARIN SOD (PORCINE) 5,000 UNIT/ML 1 ML VIAL SUBCUT SCH (22:15)
[2020-02-02] MEDS: LURASIDONE HCL 60 MG TABLET PO SCH (22:18)
--- NOTE | 2020-02-03 02:32 | EKG REPORT ---
SEVERITY:- BORDERLINE ECG - SINUS RHYTHM PROBABLE LEFT ATRIAL ABNORMALITY : Confirmed by: Imer Hallman MD 03-Feb-2020 02:32:13
[2020-02-03] MEDS: NORMAL SALINE 1000 ML 1,000 ML IV PRN ×2 (05:00→18:01)
[2020-02-03] MEDS: HEPARIN SOD (PORCINE) 5,000 UNIT/ML 1 ML VIAL SUBCUT SCH ×3 (05:55→22:48)
[2020-02-03 06:01] LABS: HEMATOCRIT 34.9 % (36.0-47.0); MEAN CORPUSCULAR HEMOGLOBIN 32.7 pg (27.0-33.4); MEAN CORPUSCULAR HGB CONC 36.3 g/dL (32.0-36.0); MEAN CORPUSCULAR VOLUME 90 fl (80-97); PLATELET COUNT 322 10^3/uL (150-450); RED BLOOD COUNT 3.87 10^6/uL (3.72-5.28); RED CELL DISTRIBUTION WIDTH 12.8 % (11.5-14.0); WHITE BLOOD COUNT 5.8 10^3/uL (4.0-10.5)
[2020-02-03 06:02] LABS: HEMOGLOBIN 12.7 g/dL (12.0-15.5)
[2020-02-03 06:29] LABS: ANION GAP 10 (5-19); BLOOD UREA NITROGEN 29 mg/dL (7-20); CARBON DIOXIDE 31 mmol/L (22-30); CHLORIDE 98 mmol/L (98-107); GLUCOSE 96 mg/dL (75-110)
[2020-02-03 06:46] LABS: POTASSIUM 2.8 mmol/L (3.6-5.0)
[2020-02-03] MEDS: FAMOTIDINE 20 MG TABLET PO SCH (09:08)
[2020-02-03] MEDS: POTASSI CL 20 MEQ/50 ML RIDER 20 MEQ/50 ML RTUPB IV SCH ×2 (09:11→10:43)
[2020-02-03] MEDS ORDERED: POTASSIUM CHLORIDE 10 MEQ TABLET.ER PO ONE ×2 (09:30→20:22)
[2020-02-03] MEDS ORDERED: DOCUSATE SODIUM 100 MG CAPSULE PO SCH (10:00)
[2020-02-03 16:07] LABS: ANION GAP 9 (5-19); BLOOD UREA NITROGEN 25 mg/dL (7-20); CALCIUM 9.5 mg/dL (8.4-10.2); CARBON DIOXIDE 30 mmol/L (22-30); CHLORIDE 99 mmol/L (98-107); GLUCOSE 102 mg/dL (75-110); POTASSIUM 3.4 mmol/L (3.6-5.0)
--- NOTE | 2020-02-03 20:29 | PDOC PROGRESS REPORT ---
Subjective Progress Note for:: 02/03/20 Subjective:: MAHESH BRASHER is a 49 year old female with past medical history significant for bipolar depression/anxiety and possible anorexia (patient reports she has just established w/ psychiatry to address her food aversion); previously on antihypertensives but has since had an intentional 100 lb weight loss who was admitted 02/02/2020 with acute kidney injury and hypokalemia. Patient is seen on morning rounds. She is found resting bed, comfortably, on room air. She appears well today and states that she is feeling much better. She denies any further episodes of palpitations. She further denies fever, chills, chest pain, dyspnea, abdominal pain, nausea vomiting diarrhea. She reports adequate appetite; nursing documentation shows that she is consumed 50 to 75% of her meals. She has no questions or concerns at this time. No concerns per nursing. Reason For Visit: MARTELL,HYPOKALEMIA Physical Exam Vital Signs: Temp Pulse Resp BP Pulse Ox 97.5 F 73 16 124/79 100 02/03/20 07:48 02/03/20 16:12 02/03/20 16:12 02/03/20 07:45 02/03/20 16:12 Intake & Output 02/02/20 02/03/20 02/04/20 06:59 06:59 06:59 Intake Total 1100 1985 Balance 1100 1985 Weight 72.6 kg 72.6 kg General appearance: PRESENT: no acute distress, cooperative, well-developed, well-nourished Head exam: PRESENT: atraumatic, normocephalic Eye exam: PRESENT: conjunctiva pink, EOMI, PERRLA. ABSENT: scleral icterus Mouth exam: PRESENT: moist, tongue midline Respiratory exam: PRESENT: clear to auscultation iris, symmetrical, unlabored. ABSENT: rales, rhonchi, wheezes Cardiovascular exam: PRESENT: RRR, +S1, +S2. ABSENT: diastolic murmur, rubs, systolic murmur Vascular exam: PRESENT: normal capillary refill Extremities exam: PRESENT: full ROM. ABSENT: calf tenderness, clubbing, pedal edema Neurological exam: PRESENT: alert, awake, oriented to person, oriented to place, oriented to time, oriented to situation, CN II-XII grossly intact. ABSENT: motor sensory deficit Psychiatric exam: PRESENT: appropriate affect, normal mood. ABSENT: homicidal ideation, suicidal ideation Skin exam: PRESENT: dry, intact, warm. ABSENT: cyanosis, rash Results Laboratory Results: 02/03/20 05:17 02/03/20 15:22 02/03/20 02/03/20 02/03/20 05:17 05:17 15:22 WBC 5.8 RBC 3.87 Hgb 12.7 D Hct 34.9 L MCV 90 MCH 32.7 MCHC 36.3 H RDW 12.8 Plt Count 322 Sodium 138.6 137.9 Potassium 2.8 L* 3.4 L Chloride 98 99 Carbon Dioxide 31 H 30 Anion Gap 10 9 BUN 29 H 25 H Creatinine 1.59 H 1.42 H Est GFR ( Amer) 42 L 48 L Glucose 96 102 Calcium 9.0 9.5 02/02/20 02/02/20 02/02/20 14:13 14:13 19:25 Troponin I < 0.012 < 0.012 NT-Pro-B Natriuret Pep 59 02/03/20 01:47 Troponin I < 0.012 NT-Pro-B Natriuret Pep Impressions: Chest X-Ray 02/02/20 13:51 IMPRESSION: NO SIGNIFICANT RADIOGRAPHIC FINDING IN THE CHEST. Assessment and Plan - Diagnosis (1) Palpitations Is this a current diagnosis for this admission?: Yes Plan: No further episodes. Likely secondary to hypokalemia and MARTELL. Troponins negative x3. EKG reassuring. proBNP 59 Monitor on telemetry; no abnormal rhythms noted.. (2) MARTELL (acute kidney injury) Is this a current diagnosis for this admission?: Yes Plan: Significantly improved; CR 2.18-> 1.59-> 1.42 Likely pre-renal secondary to poor p.o. intake and use of torsemide. Continue generous IVF. Encourage p.o fluids Avoid nephrotoxic medications as able. Follow chemistries. (3) Hypokalemia Is this a current diagnosis for this admission?: Yes Plan: Likely secondary to poor p.o. intake and use of torsemide resulting in MARTELL. IV and PO replacement by ED provider. Mag level is acceptable. Additional IV and oral replacement today. Follow-up chemistries. (4) HTN (hypertension) Is this a current diagnosis for this admission?: Yes Plan: Acceptable blood pressures. Not on blood pressure medications currently. Patient states torsemide was prescribed for edema. Monitor and initiate oral therapy as indicated. (5) Bipolar disorder Qualifiers: Active/Remission status: in partial remission Most recent bipolar episode type: most recent episode unspecified type Qualified Code(s): F31.70 - Bipolar disorder, currently in remission, most recent episode unspecified Is this a current diagnosis for this admission?: Yes Plan: Continue home medication regiment. May use home medications; Fluvoxamine is non-formulary. Supportive Care. - Time Time Spent with patient: 15-24 minutes Medications reviewed and adjusted accordingly: Yes Anticipated Discharge Disposition: Home, Self Care Anticipated Discharge Timeframe: within 24 hours
[2020-02-03 21:29] VITALS: BP 133/76
[2020-02-03] MEDS: LURASIDONE HCL 60 MG TABLET PO SCH (22:48)
[2020-02-04] MEDS ORDERED: FLUVOXAMINE MALEATE 100 MG PO SCH (10:00)
[2020-02-04] MEDS ORDERED: PRENATAL VITAMIN W DHA CAPSULE PO SCH (10:00)
[2020-02-04] MEDS ORDERED: FAMOTIDINE 20 MG TABLET PO SCH (10:00)
[2020-02-04] MEDS ORDERED: (PENDING PHARMACY ID) (Pnv No.95/Ferrous Fum/Folic Ac [Prenatal Caplet] 1 EACH) PO SCH (10:00)
--- NOTE | 2020-02-06 13:00 | Left Against Medical Advice ---
Against Medical Advice Admission Date/Time: 02/02/20 17:31 Primary Care Provider: ERNESTO THORNE PA-C Date of Patient Emigration: 02/03/20 - Diagnosis: (1) Palpitations Is this a current diagnosis for this admission?: Yes (2) MARTELL (acute kidney injury) Is this a current diagnosis for this admission?: Yes (3) Hypokalemia Is this a current diagnosis for this admission?: Yes (4) HTN (hypertension) Is this a current diagnosis for this admission?: Yes (5) Bipolar disorder Is this a current diagnosis for this admission?: Yes - Summary: Summary: Please see Admission and Progress Notes as well. MAHESH BRASHER is a 49 F, who LEFT AGAINST MEDICAL ADVICE. The Patient was admitted on 02/02/20 17:31. Patient was admitted for MARTELL and Hypokalemia r/t poor p.o. intake and over-use of HCTZ/Torsemide (prescribed for prn edema). Patient's renal function improved w/ IV fluids. She received p.o. and IV potassium replacement. At last lab; K 3.4, BUN 25/Cr 1.42. It is very likely that patient would have be medically ready for d/c home on 02/04/20, however, patient elected to leave AGAINST MEDICAL ADVICE late in the evening 02/03/20.
== END 2020-02-03 22:47 | disposition left against medical advice (07) ==
LOC: ER 13:39 → EH 17:31 → 5 19:05
PROVIDERS: ADMIT Hospitalist; ATTEND Registered Nurse
DX: R00.2 Palpitations (principal); N17.9 Acute kidney failure, unspecified; E87.6 Hypokalemia; I10 Essential (primary) hypertension; F31.70 Bipolar disorder, currently in remission, most recent episode unspecified; F41.9 Anxiety disorder, unspecified; R06.02 Shortness of breath; R63.8 Other symptoms and signs concerning food and fluid intake; Z87.891 Personal history of nicotine dependence; Z82.49 Family history of ischemic heart disease and other diseases of the circulatory system; Z79.899 Other long term (current) drug therapy
CPT/HCPCS: 93005; 99285; 96365; 96366; 96367; 36415 ×2; 84439; 83735; 84443; 85025; 85027; 80048; 80053; 84484 ×2; 84481; 83036; 83880; 71045; 93010; G0378 ×3; J3480 ×2; J7030 ×2

== ENCOUNTER 2020-02-14 20:44 | Emergency (ER) | payer BC ==
[2020-02-14 21:15] VITALS: BP 137/93
== END 2020-02-14 22:00 | disposition left against medical advice (07) ==
LOC: ER 20:44
DX: Z53.21 Procedure and treatment not carried out due to patient leaving prior to being seen by health care provider (principal)

== ENCOUNTER → 2020-02-14 | Outpatient (CLI) | payer BC ==
[2020-02-14 14:18] LABS: ABSOLUTE EOSINOPHILS # (AUTO) 0.2 10^3/uL (0.0-0.6); ABSOLUTE LYMPHOCYTES (AUTO) 2.6 10^3/uL (0.5-4.7); ABSOLUTE MONOCYTES (AUTO) 0.5 10^3/uL (0.1-1.4); ABSOLUTE NEUT (AUTO) 4.4 10^3/uL (1.7-8.2); BASOPHILS % (AUTO) 0.5 % (0-2); EOSINOPHILS % (AUTO) 2.5 % (0-6); HEMOGLOBIN 13.5 g/dL (12.0-15.5); LYMPHOCYTES % (AUTO) 33.3 % (13-45); MEAN CORPUSCULAR HEMOGLOBIN 32.4 pg (27.0-33.4); MEAN CORPUSCULAR HGB CONC 36.5 g/dL (32.0-36.0); MEAN CORPUSCULAR VOLUME 89 fl (80-97); MONOCYTES % (AUTO) 6.7 % (3-13); PLATELET COUNT 402 10^3/uL (150-450); RED BLOOD COUNT 4.16 10^6/uL (3.72-5.28); RED CELL DISTRIBUTION WIDTH 12.6 % (11.5-14.0); TOTAL CELLS COUNTED % (AUTO) 100 %; WHITE BLOOD COUNT 7.7 10^3/uL (4.0-10.5)
[2020-02-14 14:36] LABS: ALBUMIN 4.9 g/dL (3.5-5.0); ALKALINE PHOSPHATASE 75 U/L (38-126); ASPARTATE AMINO TRANSFERASE 22 U/L (14-36); BILIRUBIN,DIRECT 0.3 mg/dL (0.0-0.4); BILIRUBIN,TOTAL 0.6 mg/dL (0.2-1.3); BLOOD UREA NITROGEN 27 mg/dL (7-20); CALCIUM 9.7 mg/dL (8.4-10.2); CHLORIDE 80 mmol/L (98-107); GLUCOSE 102 mg/dL (75-110); TOTAL PROTEIN 8.3 g/dL (6.3-8.2)
[2020-02-14 14:55] LABS: ANION GAP 14 (5-19); CARBON DIOXIDE 39 mmol/L (22-30)
[2020-02-14 15:16] LABS: POTASSIUM 2.4 mmol/L (3.6-5.0)
== END ==
LOC: OD 13:11
PROVIDERS: ATTEND Nurse Practitioner Family
DX: F07.81 Postconcussional syndrome (principal); R56.9 Unspecified convulsions; G47.33 Obstructive sleep apnea (adult) (pediatric)
CPT/HCPCS: 36415; 80053; 82607; 84443; 85025; 86376

== ENCOUNTER 2020-02-15 10:58 | Emergency (ER) | payer BC ==
--- NOTE | 2020-02-15 11:17 | ER Document Report ---
ED Medical Screen (RME) - General Chief Complaint: Palpitations Stated Complaint: WEAKNESS Time Seen by Provider: 02/15/20 11:09 Primary Care Provider: JERI JUNIOR NP-C [Primary Care Provider] - Follow up as needed TRAVEL OUTSIDE OF THE [place] IN LAST 30 DAYS: No - HPI Notes: 02/15/20 11:16 49-year-old female to the emergency department with complaints of feeling weak, having heart palpitations, and muscle cramping is been going on for over a week. She states that she has found out that her potassium has been 2.4. She states that she has been trying to take potassium pills "when I can remember" but it does not seem to be helping. Of note she is on torsemide 100 mg twice a day for edema. Denies any chest pain, shortness of breath. I performed a brief medical screening exam on the patient determined that the patient needs further evaluation and management by main side provider. I have placed initial orders to help expedite care. - Related Data Allergies/Adverse Reactions: cephalexin [From Keflex] Allergy (Verified 02/15/20 11:09) Sulfa (Sulfonamide Antibiotics) Allergy (Verified 02/15/20 11:09) vancomycin Allergy (Verified 02/15/20 11:09) Past Medical History - Social History Drug Abuse: Marijuana - Past Medical History Cardiac Medical History: Reports: Hx Hypertension Denies: Hx Atrial Fibrillation, Hx Congestive Heart Failure, Hx Coronary Artery Disease, Hx Heart Attack, Hx Hypercholesterolemia Neurological Medical History: Reports: Hx Migraine Endocrine Medical History: Denies: Hx Diabetes Mellitus Type 2, Hx Hypothyroidism Renal/ Medical History: Denies: Hx Peritoneal Dialysis Psychiatric Medical History: Reports: Hx Bipolar Disorder, Hx Depression, Hx Post Traumatic Stress Disorder Past Surgical History: Reports: Hx Section - x 3, Hx Gynecologic Surgery - d+c, Hx Hysterectomy, Hx Tubal Ligation - Immunizations Hx Diphtheria, Pertussis, Tetanus Vaccination: Yes Physical Exam - Vital signs Vitals: Temp Pulse Resp BP Pulse Ox 97.7 F 83 17 147/97 H 100 02/15/20 11:03 02/15/20 11:03 02/15/20 11:03 02/15/20 11:03 02/15/20 11:03 Course - Vital Signs Vital signs: Temp Pulse Resp BP Pulse Ox 97.7 F 83 17 147/97 H 100 02/15/20 11:03 02/15/20 11:03 02/15/20 11:03 02/15/20 11:03 02/15/20 11:03 Doctor's Discharge - Discharge Referrals: JERI JUNIOR, DRIER OPERATOR-C [Primary Care Provider] - Follow up as needed
--- NOTE | 2020-02-15 11:32 | RADIOLOGY REPORT (SQ) ---
EXAM DESCRIPTION: CHEST SINGLE VIEW IMAGES COMPLETED DATE/TIME: 02/15/2020 11:23 am REASON FOR STUDY: palpitations COMPARISON: 02/02/2020. EXAM PARAMETERS: NUMBER OF VIEWS: One view. TECHNIQUE: Single frontal radiographic view of the chest acquired. RADIATION DOSE: NA LIMITATIONS: None. FINDINGS: LUNGS AND PLEURA: No opacities, masses or pneumothorax. No pleural effusion. MEDIASTINUM AND HILAR STRUCTURES: No masses. Contour normal. HEART AND VASCULAR STRUCTURES: Heart normal in size. Normal vasculature. BONES: No acute findings. HARDWARE: None in the chest. OTHER: No other significant finding. IMPRESSION: NO ACUTE RADIOGRAPHIC FINDING IN THE CHEST. TECHNICAL DOCUMENTATION: JOB ID: [id number] 2010 [employer]- All Rights Reserved Reading location - IP/workstation name: [email or web address]
[2020-02-15 11:53] LABS: ABSOLUTE EOSINOPHILS # (AUTO) 0.2 10^3/uL (0.0-0.6); ABSOLUTE LYMPHOCYTES (AUTO) 1.8 10^3/uL (0.5-4.7); ABSOLUTE MONOCYTES (AUTO) 0.5 10^3/uL (0.1-1.4); ABSOLUTE NEUT (AUTO) 3.5 10^3/uL (1.7-8.2); BASOPHILS % (AUTO) 0.7 % (0-2); EOSINOPHILS % (AUTO) 3.5 % (0-6); HEMATOCRIT 40.4 % (36.0-47.0); HEMOGLOBIN 14.4 g/dL (12.0-15.5); LYMPHOCYTES % (AUTO) 30.3 % (13-45); MEAN CORPUSCULAR HEMOGLOBIN 32.1 pg (27.0-33.4); MEAN CORPUSCULAR HGB CONC 35.7 g/dL (32.0-36.0); MEAN CORPUSCULAR VOLUME 90 fl (80-97); MONOCYTES % (AUTO) 8.4 % (3-13); PLATELET COUNT 410 10^3/uL (150-450); RED CELL DISTRIBUTION WIDTH 12.5 % (11.5-14.0); SEGMENTED NEUTROPHILS % (AUTO) 57.1 % (42-78); TOTAL CELLS COUNTED % (AUTO) 100 %; WHITE BLOOD COUNT 6.1 10^3/uL (4.0-10.5)
--- NOTE | 2020-02-15 11:55 | ER Document Report ---
ED General - General Chief Complaint: Palpitations Stated Complaint: WEAKNESS Time Seen by Provider: 02/15/20 11:09 Primary Care Provider: JERI JUNIOR NP-C [NO LOCAL MD] - Follow up as needed Notes: This 49-year-old woman presents to the emergency department with a history of low potassium in the past. She states that her potassiums were as low as 2 on a prior occasion. She is having a sense of palpitations and notes that this is the symptoms she had before. She is on a diuretic torsemide and she has been taking it for some time for edema. She is taking a potassium supplement she denies a magnesium supplement. He denies chest pain or generalized weakness. TRAVEL OUTSIDE OF THE [place] IN LAST 30 DAYS: No - Related Data Allergies/Adverse Reactions: cephalexin [From TrendU] Allergy (Verified 02/15/20 11:09) Sulfa (Sulfonamide Antibiotics) Allergy (Verified 02/15/20 11:09) vancomycin Allergy (Verified 02/15/20 11:09) Past Medical History - Social History Smoking Status: Current Some Day Smoker Drug Abuse: Marijuana Family History: Reviewed & Not Pertinent, Hypertension - CHF, Other - renal failure- mother on dialysis - Past Medical History Cardiac Medical History: Reports: Hx Hypertension Denies: Hx Atrial Fibrillation, Hx Congestive Heart Failure, Hx Coronary Jazmin ry Disease, Hx Heart Attack, Hx Hypercholesterolemia Neurological Medical History: Reports: Hx Migraine Endocrine Medical History: Denies: Hx Diabetes Mellitus Type 2, Hx Hypothyroidism Renal/ Medical History: Denies: Hx Peritoneal Dialysis Psychiatric Medical History: Reports: Hx Bipolar Disorder, Hx Depression, Hx Post Traumatic Stress Disorder Past Surgical History: Reports: Hx Section - x 3, Hx Gynecologic Surgery - d+c, Hx Hysterectomy, Hx Tubal Ligation - Immunizations Hx Diphtheria, Pertussis, Tetanus Vaccination: Yes Review of Systems - Review of Systems Notes: Constitutional: Negative for fever. HENT: Negative for sore throat. Eyes: Negative for visual changes. Cardiovascular: Negative for chest pain. Respiratory: Negative for shortness of breath. Gastrointestinal: See HPI Genitourinary: Negative for dysuria. Musculoskeletal: Negative for back pain. Skin: Negative for rash. Neurological: Negative for headaches, weakness or numbness. 10 point ROS negative except as marked above and in HPI. Physical Exam - Vital signs Vitals: Temp Pulse Resp BP Pulse Ox 97.7 F 83 17 147/97 H 100 02/15/20 11:03 02/15/20 11:03 02/15/20 11:03 02/15/20 11:03 02/15/20 11:03 - Notes Notes: PHYSICAL EXAMINATION: Physical Exam: General: Well-nourished well-developed 49-year-old female in no acute distress HEENT: NC/AT, pupils equal round and reactive to light, MM moist,nares clear, oropharynx clear, airway patent Neck: supple, no adenopathy, no masses. Good range of motion Lungs: clear, no wheezing, no rales no rhonchi CVS: Regular rate and rhythm no murmur gallop or rub Abdomen: Soft, active, nontender, no masses, no hepatosplenomegaly Ext: No edema, clubbing or cyanosis. Neuro: Alert and responsive, moving all 4 extremities on command, cranial nerves intact, no focal findings Skin: Intact no open lesions, no rash PSYCH: Normal mood, normal affect. Course - Vital Signs Vital signs: Temp Pulse Resp BP Pulse Ox 97.7 F 83 10 L 134/89 H 98 02/15/20 11:03 02/15/20 11:03 02/15/20 13:00 02/15/20 12:01 02/15/20 13:00 - Laboratory Result Diagrams: 02/15/20 11:30 02/15/20 11:30 Laboratory results interpreted by me: 02/15/20 11:30 Potassium 2.8 L* Chloride 82 L Carbon Dioxide 41 H* BUN 27 H Creatinine 1.96 H Est GFR ( Amer) 33 L Est GFR (MDRD) Non-Af 27 L Glucose 128 H Magnesium 2.4 H Total Protein 8.6 H Discharge - Discharge Clinical Impression: Hypokalemia, Palpitations, Generalized weakness Condition: Good Disposition: HOME, SELF-CARE Instructions: Hypokalemia ([facility]) Additional Instructions: You are seen in the emergency department today because of symptoms related to a low potassium level. You are given a prescription for potassium supplement. Please take 1 tablet twice daily as prescribed. Please follow-up with your primary care doctor early next week and have a potassium level drawn. Because you are using a fluid pill, you may need to be on a daily supplement of potassium. Your primary care doctor will help make that decision regarding long-term potassium supplementation. If you are having continued symptoms or new concerns you may return to the emergency department for reevaluation if needed. HOME CARE INSTRUCTIONS & INFORMATION: Thank you for choosing us for your medical needs. We hope you're satisfied with the care you received. After you leave, you must properly care for your problem and, at the same time, observe its progress. Any condition can change. Some illnesses can change rapidly over hours or days. If your condition worsens, return to the Emergency Department or see your physician promptly. ABOUT YOUR X-RAYS AND EKG'S: If you had an EKG or X-rays taken, they have been read by the Emergency Physician. The X-rays and EKG's will also be read by a Radiologist or Certifed Refrigeration Operator within 24 hours. If discrepancies are noted, you will be notified by telephone. Please be certain the ED has a correct telephone number & address where you can be reached. Also, realize that some fractures or abnormalities do not show up on initial X-rays. If your symptoms continue, see your physician. ABOUT YOUR LABORATORY TEST: If you had laboratory tests, the results have been reviewed by the Emergency Physician. Some test results (for example cultures) may not be available for several days. You will be contacted if any test result shows you need additional treatment. Please be certain the ED has a correct telephone number and address where you can be reached. ABOUT YOUR MEDICATIONS: You will receive instructions on how to take your medicine on the prescription label you receive. Additional information may be provided by the Pharmacy. If you have questions afterwards, call the ED for clarification or further instructions. Some prescribed medications may cause drowsiness. Do not perform tasks such as driving a car or operating machinery without consulting your Pharmacist. If you feel you need a refill of pain medication, your condition will need re-evaluation. Please do not call for a refill of any medication. ABOUT YOUR SIGNATURE: Signature of this document acknowledges to followin. Understanding that you received emergency treatment and that you may be released before al medical problems are known or treated. Please be certain the ED has a correct phone number & address where you can be reached. 2. Acknowledgement that you will arrange for follow-up care as recommended. 3. Authorization for the Emergency Physician to provide information to your follow-up Physician in order to maximize your care. AT ANY TIME, IF YOUR SYMPTOMS CHANGE SIGNIFICANTLY OR WORSEN OR YOU DEVELOP NEW SYMPTOMS, RETURN TO THE EMERGENCY DEPARTMENT IMMEDIATELY FOR RE-EVALUATION. OUR GOAL IS TO PROVIDE EXCELLENT MEDICAL CARE! WE HOPE THAT WE HAVE MET YOUR EXPECTATIONS DURING YOUR EMERGENCY DEPARTMENT VISIT AND THAT YOU FEEL YOU HAVE RECEIVED EXCELLENT CARE! Prescriptions: Potassium Chloride 20 meq PO BID #[id number] [email or web address] Referrals: JERI JUNIOR, SPOUT POSITIONER-C [NO LOCAL MD] - Follow up as needed
[2020-02-15 12:06] LABS: ALBUMIN 4.9 g/dL (3.5-5.0); ALKALINE PHOSPHATASE 78 U/L (38-126); ASPARTATE AMINO TRANSFERASE 24 U/L (14-36); BILIRUBIN,DIRECT 0.2 mg/dL (0.0-0.4); BILIRUBIN,TOTAL 0.8 mg/dL (0.2-1.3); BLOOD UREA NITROGEN 27 mg/dL (7-20); CALCIUM 9.9 mg/dL (8.4-10.2); CHLORIDE 82 mmol/L (98-107); GLUCOSE 128 mg/dL (75-110); TOTAL PROTEIN 8.6 g/dL (6.3-8.2)
[2020-02-15 12:12] LABS: ANION GAP 15 (5-19)
[2020-02-15 12:18] LABS: POTASSIUM 2.8 mmol/L (3.6-5.0)
[2020-02-15 12:19] LABS: CARBON DIOXIDE 41 mmol/L (22-30)
[2020-02-15] MEDS ORDERED: POTASSI CL 20 MEQ/50 ML RIDER 20 MEQ/50 ML RTUPB IV ONE (12:40)
[2020-02-15] MEDS ORDERED: POTASSIUM CHLORIDE 20 MEQ PACKET PO ONE (12:41)
[2020-02-15] MEDS ORDERED: NORMAL SALINE 1000 ML 1,000 ML IV ONE (12:42)
[2020-02-15 15:14] VITALS: BP 120/74
--- NOTE | 2020-02-15 21:48 | EKG REPORT ---
SEVERITY:- BORDERLINE ECG - SINUS RHYTHM PROBABLE LEFT ATRIAL ABNORMALITY : Confirmed by: Yeimi Hickman MD 15-Feb-2020 21:48:07
== END 2020-02-15 15:13 | disposition home or self-care (01) ==
LOC: ER 10:58
DX: E87.6 Hypokalemia (principal); R00.2 Palpitations; R53.1 Weakness; Z79.899 Other long term (current) drug therapy; R60.0 Localized edema; Z88.1 Allergy status to other antibiotic agents; Z88.2 Allergy status to sulfonamides; F17.200 Nicotine dependence, unspecified, uncomplicated; F12.10 Cannabis abuse, uncomplicated; I10 Essential (primary) hypertension
CPT/HCPCS: 93005; 99285; 96365; 96366; 36415; 83735; 85025; 80053; 84484; 71045; 93010; J3480; J7030; J3490

== ENCOUNTER 2020-04-29 18:43 | Emergency (ER) | payer BC ==
--- NOTE | 2020-04-29 18:52 | ER Document Report ---
ED Medical Screen (RME) - General Chief Complaint: Headache Stated Complaint: HEADACHE Time Seen by Provider: 04/29/20 18:47 Notes: HPI: 50-year-old female presenting with a generalized headache over the last 3 to 4 days. Slight scratchy throat. Patient's daughter also being evaluated today. Patient states the daughters boyfriend's family all tested positive for Covid in the last few days no chest pain no shortness of breath no abdominal pain nausea vomiting PHYSICAL EXAMINATION: Lung sounds are clear to auscultation, patient is not tachycardic, regular rate and rhythm. No abdominal pain on palpation I have greeted and performed a rapid initial assessment of this patient. A comprehensive ED assessment and evaluation of the patient, analysis of test results and completion of medical decision making process will be conducted by an additional ED providers. TRAVEL OUTSIDE OF THE [place] IN LAST 30 DAYS: No - Related Data Allergies/Adverse Reactions: cephalexin [From Keflex] Allergy (Verified 02/15/20 11:09) Sulfa (Sulfonamide Antibiotics) Allergy (Verified 02/15/20 11:09) vancomycin Allergy (Verified 02/15/20 11:09) Past Medical History - Past Medical History Cardiac Medical History: Reports: Hx Hypertension Denies: Hx Atrial Fibrillation, Hx Congestive Heart Failure, Hx Coronary Artery Disease, Hx Heart Attack, Hx Hypercholesterolemia Neurological Medical History: Reports: Hx Migraine Endocrine Medical History: Denies: Hx Diabetes Mellitus Type 2, Hx Hypothyroidism Renal/ Medical History: Denies: Hx Peritoneal Dialysis Psychiatric Medical History: Reports: Hx Bipolar Disorder, Hx Depression, Hx Post Traumatic Stress Disorder Past Surgical History: Reports: Hx Section - x 3, Hx Gynecologic Surgery - d+c, Hx Hysterectomy, Hx Tubal Ligation - Immunizations Hx Diphtheria, Pertussis, Tetanus Vaccination: Yes
[2020-04-29 20:27] VITALS: BP 154/91
[2020-04-29 20:50] LABS: A TYPE INFLUENZA AG NEGATIVE (NEGATIVE); B INFLUENZA AG NEGATIVE (NEGATIVE)
--- NOTE | 2020-04-29 20:54 | ER Document Report ---
HPI - HPI Time Seen by Provider: 04/29/20 18:47 Pain Level: Denies Context: Patient is a 50-year-old female presents emergency department with a headache. Patient states that her daughter's boyfriend's family had tested positive for COVID-19. Patient's daughter was in contact with the boyfriend, who is in contact with the family. Denies any nausea or vomiting. Patient states that she normally has migraines, but this is not as bad as her normal migraines. - ROS Systems Reviewed and Negative: Yes All other systems reviewed and negative - CONSTITUTIONAL Constitutional: DENIES: Fever, Chills - EENT EENT: REPORTS: Sore Throat, Nasal Drainage-Clear. DENIES: Ear Pain, Nasal Drainage-Purulent, Congestion - NEURO Neurology: REPORTS: Headache - CARDIOVASCULAR Cardiovascular: DENIES: Chest pain - RESPIRATORY Respiratory: DENIES: Trouble Breathing, Coughing - GASTROINTESTINAL Gastrointestinal: DENIES: Abdominal Pain, Nausea, Patient vomiting - REPRODUCTIVE Reproductive: DENIES: : - DERM Skin Color: Normal Skin Problems: None Past Medical History - General Information source: Patient - Social History Smoking Status: Former Smoker Family History: Reviewed & Not Pertinent, Hypertension - CHF, Other - renal failure- mother on dialysis - Past Medical History Cardiac Medical History: Reports: Hx Hypertension Denies: Hx Atrial Fibrillation, Hx Congestive Heart Failure, Hx Coronary Artery Disease, Hx Heart Attack, Hx Hypercholesterolemia Neurological Medical History: Reports: Hx Migraine Endocrine Medical History: Denies: Hx Diabetes Mellitus Type 2, Hx Hypothyroidism Renal/ Medical History: Denies: Hx Peritoneal Dialysis Psychiatric Medical History: Reports: Hx Bipolar Disorder, Hx Depression, Hx Post Traumatic Stress Disorder Past Surgical History: Reports: Hx Section - x 3, Hx Gynecologic Surgery - d+c, Hx Hysterectomy, Hx Tubal Ligation - Immunizations Hx Diphtheria, Pertussis, Tetanus Vaccination: Yes Vertical Provider Document - CONSTITUTIONAL Agree With Documented VS: Yes Exam Limitations: No Limitations General Appearance: No Apparent Distress - INFECTION CONTROL TRAVEL OUTSIDE OF THE [place] IN LAST 30 DAYS: No - HEENT HEENT: Atraumatic, Normocephalic, PERRLA, Pharyngeal Tenderness, Pharyngeal Erythema. negative: Pharyngeal Exudate, Tympanic Membrane Red, Tympanic Membrane Bulging - NECK Neck: Normal Inspection - RESPIRATORY Respiratory: Breath Sounds Normal, No Respiratory Distress - CARDIOVASCULAR Cardiovascular: Regular Rate, Regular Rhythm Pulses: Normal: Radial - MUSCULOSKELETAL/EXTREMETIES Musculoskeletal/Extremeties: FROM - NEURO Level of Consciousness: Awake, Alert, Appropriate Motor/Sensory: No Motor Deficit, No Sensory Deficit - DERM Integumentary: Warm, Dry, No Rash Course - Re-evaluation Re-evalutation: 04/29/20 20:53 04/29/20 20:51 Rapid strep and the test are negative. The patient was evaluated during the global COVID-19 pandemic and that diagnosis was suspected/considered upon their initial presentation. Their evaluation, treatment and testing was consistent with current guidelines for patients who present with complaints or symptoms that may be related to COVID-19. Follow-up precautions were given. Verbal discharge instructions were given to the patient. They verbalized understanding. They are stable for discharge. - Vital Signs Vital signs: Temp Pulse Resp BP Pulse Ox 97.4 F 73 16 154/91 H 100 04/29/20 20:27 04/29/20 20:27 04/29/20 18:51 04/29/20 20:27 04/29/20 20:27 - Laboratory Results Critical Laboratory Results Reviewed: No Critical Results - Radiology Results Critical Radiology Results Reviewed: No Critical Results Discharge - Discharge Clinical Impression: Suspected COVID-19 virus infection Condition: Stable Disposition: HOME, SELF-CARE Additional Instructions: As a person under investigation for COVID-19, the [place] Department of Health and Human Services (division on public health) advises you to adhere to the following guidance until your test results are reported to you. If your test result is positive, you will receive additional information from your provider and your local health department at that time. Remain at home until you are cleared by the health provider or public health authorities. Keep a log of visitors to your home, notify any visitors to your home of your isolation status. If you plan to move to a new address or leave the county, notify the local health department in your County. Call your Doctor or seek care if you have an urgent medical need. Before seeking medical care, call him to get instructions from the provider before arriving at the medical office, clinic, or hospital. Notify them that you are being tested for the virus (COVID-19) so that arrangements can be made, as necessary, to prevent transmission to others in the healthcare setting. Next, notify the local health department in your county. Take Tylenol 1000 mg every 6 hours as needed for fever or body aches.
== END 2020-04-29 21:09 | disposition home or self-care (01) ==
LOC: ER 18:43
DX: R51.9 Headache, unspecified (principal); I10 Essential (primary) hypertension; Z87.891 Personal history of nicotine dependence; Z20.828 Contact with and (suspected) exposure to other viral communicable diseases; Z88.1 Allergy status to other antibiotic agents; Z88.2 Allergy status to sulfonamides
CPT/HCPCS: 99282; 87070; 87880; 87804; U0003; C9803; 87635